=== PATIENT | female | born 1950 | race Hispanic/Latino ===

== ENCOUNTER 2016-08-24 12:25 | Emergency (ER) | payer MEDICARE ==
--- NOTE | 2016-08-24 13:26 | Emergency Department Report ---
Chief Complaint: Abdominal Pain Stated Complaint: CONSTIPATION Time Seen by Provider: 08/24/16 13:20 - HPI History of Present Illness: 66-year-old female presents today stating she hasn't had a bowel movement for 3 weeks. Patient states she has history of constipation and her primary care provider wanted to get a colonoscopy. Patient is requesting a colonoscopy today. Denies chest pain, shortness of breath, abdominal pain, nausea, vomiting. Admits to having difficulty urinating. - ROS Review of Systems: Per HPI - Exam Vital Signs: Vital Signs 08/24/16 12:36 Temperature 99.1 F Pulse Rate 65 Respiratory 18 Rate Blood Pressure 173/87 O2 Sat by Pulse 97 Oximetry Physical Exam: General: 66-year-old female in no acute distress. Well-developed, well- nourished. CV: Regular rate and rhythm. Lungs: Clear to auscultation bilaterally. Abdomen: No tenderness to palpation. No guarding or rebound tenderness. MSE screening note: Focused history and physical exam performed. Due to findings the following was ordered: ED Disposition for MSE Condition: Stable Instructions: Abdominal Pain (ED)
[2016-08-24 13:57] LABS: Eosinophils % (Auto) 4.2 % (0.0-4.3); Hematocrit 39.4 % (30.3-42.9); Hemoglobin 12.7 gm/dl (10.1-14.3); Mean Corpuscular HGB Conc 32 % (30-34); Mean Corpuscular Hemoglobin 29 pg (28-32); Mean Corpuscular Volume 89 fl (79-97); Platelet Count 137 K/mm3 (140-440); Red Blood Count 4.44 M/mm3 (3.65-5.03); Red Cell Distribution Width 15.2 % (13.2-15.2); White Blood Count 6.6 K/mm3 (4.5-11.0)
[2016-08-24 14:12] LABS: Calcium 9.5 mg/dL (8.4-10.2); Chloride 99.9 mmol/L (98-107); Potassium 4.4 mmol/L (3.6-5.0)
[2016-08-25 03:58] VITALS: BP 162/94
[2016-08-25] MEDS ORDERED: CITRATE OF MAGNESIA PO ONE (05:07)
[2016-08-25] MEDS ORDERED: NACL 0.9% 1000 ML 1,000 ML ONE (06:44)
--- NOTE | 2016-08-25 10:44 | XRay Report ---
FINAL REPORT PROCEDURE: X-RAY ABDOMEN TWO VIEWS TECHNIQUE: Two films obtained which are 1 AP upright portable abdomen film and 1 AP supine portable abdomen film HISTORY: Abdominal pain COMPARISON: There no prior plain films of the abdomen to compare FINDINGS: There is a nonspecific bowel gas pattern with no plain film evidence of ileus or obstruction. Moderate amount of stool throughout the colon. Moderate bony degenerative change. Metallic hardware noted in proximal right femur. Hypertrophic bony overgrowth involving proximal right femur. Calcifications in the left pelvis are probably phleboliths although I cannot exclude distal ureteral stones. The upright film and includes a portion of the chest and shoulders. Calcifications in the soft tissues around both shoulder joints right greater than left noted of uncertain significance IMPRESSION: 1. There is a nonspecific bowel gas pattern. 2. Moderate amount of stool throughout the colon. 3. Moderate bony degenerative change. 4. Metallic hardware in proximal right femur.
--- NOTE | 2016-08-25 13:55 | Admit Criteria Form ---
Admission Criteria Documentation: ABDOMINAL PAIN Clinical Indications for Admission to Inpatient Care (Place 'X' for any and all applicable criteria): Admission is indicated for ANY ONE of the following(1)(2)(3)(4)(5): [ ]I. Inpatient admission required rather than observation care (Also use Abdominal Pain: Observation Care, as appropriate) because of ANY ONE of the following: [ ]a) Severe pain requiring acute inpatient management [ ]b) Identification of etiology/finding that requires inpatient care (eg, aortic dissection, free air) [ ]c) Absent bowel sounds with complete ileus(6) [ ]d) Suspected toxic megacolon [ ]e) Severe electrolyte abnormalities requiring inpatient care [ ]f) High fever or infection requiring inpatient admission as indicated by ANY ONE of following(7)(8): [ ] i) Appropriate outpatient or observational care antimicrobial treatment unavailable, not effective, or not feasible [ ] ii) Documented bacteremia [ ] iii) Temperature > 104.9 degrees F (oral) [ ] iv) T >103.1 F (oral) or < 96.8 F(rectal) that does not respond to all emergency treatment measures [ ]g) Signs of intestinal obstruction [B] [ ]h) Hemodynamic instability [ ]i) IV fluid to replace significant ongoing losses (greater than 3 L/m2 per day) (12)(13) [ ]j) Percutaneous or open drainage (eg, abscess, biliary tract ) procedures [ ]k) Parenteral nutrition regimen that must be implemented on inpatient basis [ ]l) Other condition,treatment or monitoring requiring inpatient admission. [ ]II. Peritoneal signs present [ ]III. Surgery needed that cannot be performed on an ambulatory basis. [ ]IV. Evaluation requires patient to not eat or drink for extended period ( eg, more than 24 hours). [ ]V. Contraindications and/or Inappropriate clinical situations for Observational Care in patients with abdominal pain, when ANY ONE of the following is required: [ ]a) Thorough evaluation is required to prevent catastrophic events due to delays in diagnosing (e.g.Mesenteric ischemia) 1,3 [ ]b) Patient with severe pathology or with chronic symptoms unlikely to improve in the ED stay (3) [ ]. General contraindications and/or Inappropriate clinical situations for Observational Care in patients with abdominal pain, when ANY ONE of the following is required: [ ]a) Prediction of prolongation of LOS based on ANY ONE of the following may be considered as a contraindication for observational care 2, 3, 4, 5, 6, 7, 8, 9, 10, 11 [ ]i) Age > 65 yrs. [ ]ii) Patient arriving by ambulance [ ]iii) Patient with high acuity [ ]iv) Patient requiring vital sign monitoring [ ]v) Patient on IV medication [ ]b) Systolic blood pressures 180mmHg 3,12 [ ]c) Patient with altered mental status including delirium and other alteration of consciousness, (3) [ ]d) Patient whose discharge disposition will be to a prison home or rehabilitation home should not be managed in Emergency Department Observation Unit. CMS rule requires 3 days hospital stay before such placement.3,13 [ ]e) Patient with failure to thrive due to broad array of etiologies 3,16,17 [ ]f) Inability to ambulate 3,14 Extended stay beyond goal length of stay may be needed for(2)(3): [ ]a) Persistent abdominal pain with suspected intra-abdominal process [ ]b) Diagnosed condition requiring continued stay (e.g., pancreatitis, complicated diverticulitis) [ ]c) Surgery (e.g., colectomy) The original [employer] includes the [email or web address] content created by [employer] has been revised. The portions of the content which have been revised are identified through the use of italic text or in bold, and [facility] has neither reviewed nor approved the modified material.All other unmodified content is copyright [employer] includes the [email or web address]. Please see references footnoted in the original [employer] includes the [email or web address] edition 2016
[2016-08-25 18:44] LABS: Bilirubin,Urine Negative (Negative); Ketones,Urine Trace mg/dL (Negative)
[2016-08-25 18:46] LABS: Blood,Urine Small (Negative); Leukocyte Esterase,Urine Moderate (Negative); Nitrite,Urine Negative (Negative); Protein,Urine <15 mg/dL mg/dL (Negative); Urobilinogen,Urine < 2.0 mg/dL (<2.0)
[2016-08-25 18:47] LABS: Bacteria,Urine 1+ /HPF (Negative); Mucus,Urine Few /HPF
== END 2016-08-25 15:30 | disposition home or self-care (01) ==
LOC: ED 12:25
DX: R39.198 Other difficulties with micturition (principal); Z53.21 Procedure and treatment not carried out due to patient leaving prior to being seen by health care provider
CPT/HCPCS: 36415; 74020; 80048; 81001; 82150; 83690; 85025; 87086; J7030; 87040

== ENCOUNTER 2017-07-27 16:24 | Inpatient (IN) | payer MEDICARE ==
[2017-07-27] MEDS ORDERED: NACL 0.9% 500 ML 500 ML IV ONE ×4 (17:11→22:15)
[2017-07-27 18:05] LABS: Basophils % (Auto) 0.8 % (0.0-1.8); Eosinophils # (Auto) 0.2 K/mm3 (0.0-0.4); Eosinophils % (Auto) 3.8 % (0.0-4.3); Hematocrit 21.7 % (30.3-42.9); Hemoglobin 6.4 gm/dl (10.1-14.3); Lymphocytes # (Auto) 0.4 K/mm3 (1.2-5.4); Lymphocytes % (Auto) 7.7 % (13.4-35.0); Mean Corpuscular HGB Conc 30 % (30-34); Mean Corpuscular Hemoglobin 24 pg (28-32); Mean Corpuscular Volume 82 fl (79-97); Monocytes # (Auto) 0.5 K/mm3 (0.0-0.8); Monocytes % (Auto) 8.5 % (0.0-7.3); Platelet Count 281 K/mm3 (140-440); Red Blood Count 2.64 M/mm3 (3.65-5.03)
[2017-07-27 18:15] LABS: INR 1.85 (0.87-1.13)
[2017-07-27 18:20] LABS: Albumin 3.1 g/dL (3.9-5); Calcium 8.9 mg/dL (8.4-10.2)
--- NOTE | 2017-07-27 20:19 | XRay Report ---
FINAL REPORT EXAM: XR CHEST 1V AP HISTORY: possible Sepsis TECHNIQUE: AP portable view of the chest PRIORS: None. FINDINGS: Lines, tubes, and devices: N/A Lungs and pleura: Trachea is normal in position. Lungs are clear of infiltrate, pleural effusion, vascular congestion, or pneumothorax. Cardiomediastinal silhouette: Cardiac and mediastinal silhouettes are unremarkable. A small hiatal hernia is present. Other: Bony structures are intact. Numerous soft tissue calcifications around both shoulders are seen which may be related to chronic bursitis. IMPRESSION: No acute cardiopulmonary process seen.
--- NOTE | 2017-07-27 21:11 | Emergency Department Report ---
ED Medical Clearance HPI - General Chief complaint: Medical Clearance Stated complaint: POSS PNEUMONIA Time Seen by Provider: 07/27/17 20:58 Source: patient, EMS Mode of arrival: Stretcher - History of Present Illness Initial comments: 67 yo female pt sent her because of abnormal labs and abnormal chest xray. Complaint: medical clearance request Place: home Alledged Intoxication: No Compliant with Home Medications: Yes Traumatic Symptoms: denies traumatic injury Associated Symptoms: cough, fever/chills, other Treatments Prior to Arrival: none Home medications: Previous Rx's Medication Instructions Recorded Last Taken Type Apixaban [Eliquis] 5 mg PO Q12HR #60 tablet 06/10/17 Unknown Rx Apixaban [Eliquis] 10 mg PO Q12HR #14 tablet 06/10/17 Unknown Rx Dicyclomine [Bentyl] 10 mg PO TID #60 tablet 06/10/17 Unknown Rx Ezetimibe [Zetia] 10 mg PO QDAY #30 tablet 06/10/17 Unknown Rx ISOSORBIDE MONOnitrate [Imdur ER] 30 mg PO DAILY #30 tablet 06/10/17 Unknown Rx Ipratropium/Albuterol Sulfate 1 ampul IH Q6HR #30 ampul.neb 06/10/17 Unknown Rx [DUONEB *Not for PRN Use*] Levothyroxine [Synthroid] 75 mcg PO QAM #30 tablet 06/10/17 Unknown Rx Oxybutynin [Ditropan] 5 mg PO QDAY #30 tablet 06/10/17 Unknown Rx Pantoprazole [Protonix TAB] 40 mg PO DAILY #30 tablet 06/10/17 Unknown Rx Pravastatin [Pravachol] 40 mg PO QHS #30 tablet 06/10/17 Unknown Rx Propranolol LA [Inderal LA] 80 mg PO QDAY #30 capsule 06/10/17 Unknown Rx Sertraline [Zoloft] 100 mg PO DAILY #30 tablet 06/10/17 Unknown Rx amLODIPine [Norvasc] 5 mg PO DAILY #30 tablet 06/10/17 Unknown Rx hydrALAZINE [Apresoline TAB] 50 mg PO TID #90 tablet 06/10/17 Unknown Rx Allergies/Adverse reactions: Allergies Allergy/AdvReac Type Severity Reaction Status Date / Time No Known Allergies Allergy Unverified 06/06/17 13:31 ED Review of Systems ROS: Stated complaint: POSS PNEUMONIA Other details as noted in HPI Constitutional: denies: chills, fever Eyes: denies: eye pain, eye discharge, vision change ENT: denies: ear pain, throat pain Respiratory: cough (for 2 weeks), wheezing. denies: shortness of breath, SOB with exertion, SOB at rest Cardiovascular: chest pain (secondary to cough). denies: palpitations Endocrine: no symptoms reported Gastrointestinal: denies: abdominal pain, nausea, diarrhea Genitourinary: denies: urgency, dysuria, discharge Musculoskeletal: other (right foot ulcer). denies: back pain, joint swelling, arthralgia Skin: denies: rash, lesions Neurological: denies: headache, weakness, paresthesias Psychiatric: denies: anxiety, depression Hematological/Lymphatic: denies: easy bleeding, easy bruising ED Past Medical Hx - Past Medical History Previous Medical History?: Yes Hx Hypertension: Yes Hx Heart Attack/AMI: Yes Hx Pulmonary Embolism: Yes Hx GERD: Yes Hx Renal Disease: Yes (renal failure) Hx Arthritis: Yes Hx COPD: Yes Additional medical history: wound infection,cellulitis,buttocks decubitus, encephalopathy,tachycardia. OSTEOPOROSIS. THYROID-hypothyroidism. ANGINA, generalized weakness, decubitus right lower extremity ulcer staph - Surgical History Past Surgical History?: Yes Additional Surgical History: bilat ankle, right knee surgery, hysterectomy, tonsillectomy - Social History Smoking Status: Never Smoker Substance Use Type: None - Medications Home Medications: Home Medications Medication Instructions Recorded Confirmed Last Taken Type Apixaban [Eliquis] 5 mg PO Q12HR #60 tablet 06/10/17 Unknown Rx Apixaban [Eliquis] 10 mg PO Q12HR #14 tablet 06/10/17 Unknown Rx Dicyclomine [Bentyl] 10 mg PO TID #60 tablet 06/10/17 Unknown Rx Ezetimibe [Zetia] 10 mg PO QDAY #30 tablet 06/10/17 Unknown Rx ISOSORBIDE MONOnitrate [Imdur ER] 30 mg PO DAILY #30 tablet 06/10/17 Unknown Rx Ipratropium/Albuterol Sulfate 1 ampul IH Q6HR #30 ampul.neb 06/10/17 Unknown Rx [DUONEB *Not for PRN Use*] Levothyroxine [Synthroid] 75 mcg PO QAM #30 tablet 06/10/17 Unknown Rx Oxybutynin [Ditropan] 5 mg PO QDAY #30 tablet 06/10/17 Unknown Rx Pantoprazole [Protonix TAB] 40 mg PO DAILY #30 tablet 06/10/17 Unknown Rx Pravastatin [Pravachol] 40 mg PO QHS #30 tablet 06/10/17 Unknown Rx Propranolol LA [Inderal LA] 80 mg PO QDAY #30 capsule 06/10/17 Unknown Rx Sertraline [Zoloft] 100 mg PO DAILY #30 tablet 06/10/17 Unknown Rx amLODIPine [Norvasc] 5 mg PO DAILY #30 tablet 06/10/17 Unknown Rx hydrALAZINE [Apresoline TAB] 50 mg PO TID #90 tablet 06/10/17 Unknown Rx ED Physical Exam - General Limitations: No Limitations General appearance: alert, in no apparent distress - Head Head exam: Present: atraumatic, normocephalic - Eye Eye exam: Present: normal appearance, EOMI - ENT ENT exam: Present: mucous membranes dry, other (multiple missing teeth) - Neck Neck exam: Present: normal inspection, full ROM - Respiratory Respiratory exam: Present: normal lung sounds bilaterally. Absent: respiratory distress, wheezes, rales - Cardiovascular Cardiovascular Exam: Present: regular rate, normal rhythm. Absent: systolic murmur, diastolic murmur, rubs, gallop - GI/Abdominal GI/Abdominal exam: Present: soft, normal bowel sounds. Absent: distended, tenderness, guarding - Rectal Rectal exam: Present: heme (+) stool, hemorrhoids (multiple around entire anus) - Extremities Exam Extremities exam: Present: tenderness (over ulcer on right foot), other ( decubitus ulcer on right foot) - Back Exam Back exam: Present: normal inspection, full ROM - Neurological Exam Neurological exam: Present: alert, oriented X3, CN II-XII intact - Psychiatric Psychiatric exam: Present: normal affect, normal mood - Skin Skin exam: Present: warm, dry, intact, normal color. Absent: rash ED Course Vital Signs 07/27/17 17:04 Temperature 99.1 F Pulse Rate 103 H Respiratory 18 Rate Blood Pressure 86/50 O2 Sat by Pulse 96 Oximetry ED Medical Decision Making - Lab Data Result diagrams: 07/27/17 17:47 07/27/17 17:47 - EKG Data -: EKG Interpreted by Me - Radiology Data Radiology results: report reviewed (cxr:no acute , ), image reviewed (cxr: left lower lobe infiltrate) ED Disposition Clinical Impression: MRSA (methicillin resistant Staphylococcus aureus) infection, Hyperkalemia GI bleed Qualifiers: GI bleed type/associated pathology: unspecified gastrointestinal hemorrhage type Qualified Code(s): K92.2 - Gastrointestinal hemorrhage, unspecified Pneumonia Qualifiers: Pneumonia type: due to unspecified organism Laterality: unspecified laterality Lung location: unspecified part of lung Qualified Code(s): J18.9 - Pneumonia, unspecified organism Condition: Stable Instructions: Bacterial Pneumonia (ED) Time of Disposition: 21:40 ( )
[2017-07-27] MEDS ORDERED: PROTONIX IV ONE (21:53)
[2017-07-27] MEDS ORDERED: NACL 0.9% 500 ML 500 ML ONE ×2 (21:55→22:57)
[2017-07-27 21:58] LABS: Calcium 8.5 mg/dL (8.4-10.2)
[2017-07-27] MEDS ORDERED: PROTONIX 80 MG in NACL 0.9% 100 ML IV SCH (22:00)
[2017-07-27] MEDS ORDERED: TYLENOL PO PRN (22:10)
[2017-07-27] MEDS ORDERED: DULCOLAX PR PRN (22:10)
[2017-07-27] MEDS ORDERED: ZOFRAN IV PRN (22:10)
[2017-07-27] MEDS ORDERED: MILK OF MAGNESIA PO PRN (22:10)
--- NOTE | 2017-07-27 22:14 | History and Physical Report ---
History of Present Illness Date of examination: 07/27/17 History of present illness: 67-year-old woman history of coronary artery disease, COPD, hypertension, hypothyroidism, depression was diagnosed with pulmonary emboli on last admission and started On anticoagulation was sent to the emergency room today secondary to low hemoglobin. Patient denies any symptoms, black stool Review Of Systems: Constitutional: no weight loss Ears, eyes, nose, mouth and throat: no nasal congestion, no nasal discharge, no sinus pressure, blurry vision, diplopia Neck: No neck pain or rigidity. Cardiovascular: No chest pain, palpitations Respiratory: No shortness of breath, cough Gastrointestinal: No abdominal pain, hematochezia Genitourinary : no dysuria, frequency , hematuria Musculoskeletal: no muscle ache Integumentary: no rash, no pruritis Neurological: no parathesias, focal weakness Endocrine: no cold or heat intolerance, no polyuria or polydipsia Hematologic/Lymphatic: no easy bruising, no easy bleeding, no gland swelling Allergic/Immunologic: no urticaria, no angioedema. PAST MEDICAL HISTORY:coronary artery disease, COPD, hypertension, hypothyroidism , depression, pulmonary emboli PAST SURGICAL HISTORY: Hysterectomy, knee replacement, foot surgery FAMILY HISTORY: Hypertension SOCIAL HISTORY: Denies Alcohol, tobacco, drugs Medications and Allergies Allergies Allergy/AdvReac Type Severity Reaction Status Date / Time No Known Allergies Allergy Unverified 06/06/17 13:31 Home Medications Medication Instructions Recorded Confirmed Last Taken Type Apixaban [Eliquis] 5 mg PO Q12HR #60 tablet 06/10/17 07/27/17 07/27/17 Rx Apixaban [Eliquis] 10 mg PO Q12HR #14 tablet 06/10/17 07/27/17 07/27/17 Rx Dicyclomine [Bentyl] 10 mg PO TID #60 tablet 06/10/17 07/27/17 07/27/17 Rx Ezetimibe [Zetia] 10 mg PO QDAY #30 tablet 06/10/17 07/27/17 07/27/17 Rx ISOSORBIDE MONOnitrate [Imdur ER] 30 mg PO DAILY #30 tablet 06/10/17 07/27/17 Rx Ipratropium/Albuterol Sulfate 1 ampul IH Q6HR #30 ampul.neb 06/10/17 07/27/17 Rx [DUONEB *Not for PRN Use*] Levothyroxine [Synthroid] 75 mcg PO QAM #30 tablet 06/10/17 07/27/17 07/27/17 Rx Oxybutynin [Ditropan] 5 mg PO QDAY #30 tablet 06/10/17 07/27/17 07/27/17 Rx Pantoprazole [Protonix TAB] 40 mg PO DAILY #30 tablet 06/10/17 07/27/17 Rx Pravastatin [Pravachol] 40 mg PO QHS #30 tablet 06/10/17 07/27/17 07/27/17 Rx Propranolol LA [Inderal LA] 80 mg PO QDAY #30 capsule 06/10/17 07/27/17 Rx Sertraline [Zoloft] 100 mg PO DAILY #30 tablet 06/10/17 07/27/17 07/27/17 Rx amLODIPine [Norvasc] 5 mg PO DAILY #30 tablet 06/10/17 07/27/17 07/27/17 Rx hydrALAZINE [Apresoline TAB] 50 mg PO TID #90 tablet 06/10/17 07/27/17 07/27/17 Rx Active Meds: Active Medications Acetaminophen (Tylenol) 650 mg PO Q4H PRN PRN Reason: Pain MILD(1-3)/Fever >100.5/REY Albuterol/Ipratropium (Duoneb *Not For Prn Use*) 1 ampul IH Q6HR JAM Amlodipine Besylate (Norvasc) 5 mg PO DAILY JAM Bisacodyl (Dulcolax) 10 mg ND QDAY PRN PRN Reason: Constipation unrelieved by MOM Ezetimibe (Zetia) 10 mg PO QDAY JAM Hydralazine HCl (Apresoline) 50 mg PO TID JAM Pantoprazole Sodium 80 mg/ (Sodium Chloride) 100 mls @ 10 mls/hr IV Q10H JAM PRN Reason: 8 MG/HR Sodium Chloride (Nacl 0.9% 500 Ml) 500 mls @ 999 mls/hr IV ONCE ONE Stop: 07/27/17 22:24 Sodium Chloride (Nacl 0.9% 500 Ml) 500 mls @ 0 mls/hr IV ONCE ONE PRN Reason: As Directed Stop: 07/27/17 22:11 Levothyroxine Sodium (Synthroid) 75 mcg PO QAM JAM Magnesium Hydroxide (Milk Of Magnesia) 30 ml PO Q4H PRN PRN Reason: Constipation Ondansetron HCl (Zofran) 4 mg IV Q8H PRN PRN Reason: N/V unrelieved by Reglan Oxybutynin Chloride (Ditropan) 5 mg PO QDAY JAM Pantoprazole Sodium (Protonix) 40 mg IV ONCE ONE Stop: 07/27/17 21:54 Pantoprazole Sodium (Protonix) 40 mg PO DAILY JAM Propranolol HCl (Inderal La) 80 mg PO QDAY JAM Sertraline HCl (Zoloft) 100 mg PO DAILY JAM Exam - Physical Exam Narrative exam: Gen. appearance: Patient lying in bed in no acute distress HEENT: Normocephalic/atraumatic, pupils equal round reactive to light, extra occular movement intact, no scleral icterus, no JVD or thyromegaly or nodule, neck is supple, mucous membrane moist, no erythema or exudate Heart: S1-S2, regular rate and rhythm Lungs: Clear to auscultation bilateral breathing comfortable Abdomen: Positive bowel sounds, nontender, nondistended, no organomegaly Extremities: No edema, cyanosis, clubbing Neuro:: Oriented 3 , cranial nerves II-12 intact, speech, motor intact Skin: No rash, nodules, warm dry Rectal: heme positive stool - Constitutional Vitals: Temp Pulse Resp BP Pulse Ox 99.1 F 103 H 18 86/50 96 07/27/17 17:04 07/27/17 17:04 07/27/17 17:04 07/27/17 17:04 07/27/17 17:04 Results - Labs CBC & Chem 7: 07/27/17 17:47 07/27/17 21:19 Labs: Abnormal lab results 07/27/17 07/27/17 07/27/17 Range/Units 17:47 17:47 17:47 RBC 2.64 L (3.65-5.03) M/mm3 Hgb 6.4 L (10.1-14.3) gm/dl Hct 21.7 L (30.3-42.9) % MCH 24 L (28-32) pg RDW 19.0 H (13.2-15.2) % Lymph % (Auto) 7.7 L (13.4-35.0) % [place] % (Auto) 8.5 H (0.0-7.3) % Lymph # 0.4 L (1.2-5.4) K/mm3 Seg Neutrophils % 79.2 H (40.0-70.0) % PT 22.4 H (12.2-14.9) Sec. INR 1.85 H (0.87-1.13) Potassium 5.4 H (3.6-5.0) mmol/L BUN 49 H (7-17) mg/dL Creatinine 1.8 H (0.7-1.2) mg/dL Glucose 112 H (65-100) mg/dL ALT 5 L (7-56) units/L NT-Pro-B Natriuret Pep (0-900) pg/mL Total Protein 5.4 L (6.3-8.2) g/dL Albumin 3.1 L (3.9-5) g/dL 07/27/17 07/27/17 Range/Units 21:19 21:19 RBC (3.65-5.03) M/mm3 Hgb (10.1-14.3) gm/dl Hct (30.3-42.9) % MCH (28-32) pg RDW (13.2-15.2) % Lymph % (Auto) (13.4-35.0) % [place] % (Auto) (0.0-7.3) % Lymph # (1.2-5.4) K/mm3 Seg Neutrophils % (40.0-70.0) % PT (12.2-14.9) Sec. INR (0.87-1.13) Potassium 5.1 H (3.6-5.0) mmol/L BUN 49 H (7-17) mg/dL Creatinine 1.6 H (0.7-1.2) mg/dL Glucose 114 H (65-100) mg/dL ALT (7-56) units/L NT-Pro-B Natriuret Pep 3445 H (0-900) pg/mL Total Protein (6.3-8.2) g/dL Albumin (3.9-5) g/dL - Imaging and Cardiology EKG: image reviewed Chest x-ray: image reviewed Assessment and Plan Assessment GI bleed Anemia Acute renal insufficiency Pulmonary emboli Hypertension COPD Coronary artery disease Depression Hypothyroidism Plan Admit to medicine Hold anticoagulation, and transfuse packed red blood cells Consult GI, pulmonary, start iv fluid Continue appropriate outpatient medications DVT prophylaxis
[2017-07-27 22:39] LABS: Free T4 (Free Thyroxine) 1.41 ng/dL (0.76-1.46)
[2017-07-28] MEDS ORDERED: NACL 0.9% 500 ML 500 ML ONE (01:12)
[2017-07-28] MEDS: DUONEB *Not for PRN Use IH SCH ×4 (02:54→21:22)
[2017-07-28] MEDS: SYNTHROID PO SCH (05:53)
[2017-07-28] MEDS: APRESOLINE PO SCH ×3 (07:41→21:10)
--- NOTE | 2017-07-28 08:00 | Progress Note ---
Assessment and Plan Assessment and plan: 67-year-old woman who was sent from a custodial, she was recently diagnosed with pulmonary embolism and is on anticoagulation. She was sent for low blood pressure. Patient denies melena or blood in her stool. But also admits that she does not really look at her stool. Acute blood loss anemia Has been transfused 1 unit PRBC, recheck CBC in Highly suspected GI bleed, GI has been consulted for endoscopy History of Pulmonary embolism Case was discussed with neck band maker, apparently the patient had a PE about 4 months ago. The last time the patient was actually seen by pulmonology and he recommended no further anticoagulation. Dopplers of lower x-rays were recommended and is negative for DVT. Therefore no further need for anticoagulation, etc. since the risk does not outweigh the benefits Acute kidney injury/ATN -hopefully improve with transfusion, if not will obtain nephrology consult and renal ultrasound Hypothyroidism -Thyroid function tests within normal limits, continue Synthroid at current dose Hyperkalemia -Improving, medically managed History Interval history: Review of systems Constitutional: No fevers, no malaise, no joint pains CVS: No chest pain, no orthopnea, no dyspnea on exertion, no pedal edema GI: No abdominal pain, no diarrhea, no vomiting, no constipation Respiratory: No shortness of breath, no wheezing, no coughingReview of systems Hospitalist Physical - Physical exam Narrative exam: General.: Appears well, no distress, nontoxic HEENT: Moist mucous membranes, extraocular muscles intact, no lymphadenopathy Neck: supple Cardiac: S1-S2 heard Lungs: clear to auscultation bilaterally Abdomen: soft , nontender, nondistended, bowel sounds positive Extremities: no edema clubbing or cyanosis Skin: no rash or lesions Neurologic: no gross focal deficits Psych: appropriate behavior, appropriate mood, corporative, judgment intact - Constitutional Vitals: Temp Pulse Resp BP Pulse Ox 99.0 F 79 16 86/58 95 07/28/17 07:44 07/28/17 07:44 07/28/17 07:44 07/28/17 07:44 07/28/17 03:25 Results - Labs CBC & Chem 7: 07/28/17 11:11 07/28/17 11:11 Labs: Laboratory Last Values WBC 5.6 K/mm3 (4.5-11.0) 07/27/17 17:47 RBC 2.64 M/mm3 (3.65-5.03) L 07/27/17 17:47 Hgb 6.4 gm/dl (10.1-14.3) L 07/27/17 17:47 Hct 21.7 % (30.3-42.9) L 07/27/17 17:47 MCV 82 fl (79-97) 07/27/17 17:47 MCH 24 pg (28-32) L 07/27/17 17:47 MCHC 30 % (30-34) 07/27/17 17:47 RDW 19.0 % (13.2-15.2) H 07/27/17 17:47 Plt Count 281 K/mm3 (140-440) 07/27/17 17:47 Lymph % (Auto) 7.7 % (13.4-35.0) L 07/27/17 17:47 Wells % (Auto) 8.5 % (0.0-7.3) H 07/27/17 17:47 Eos % (Auto) 3.8 % (0.0-4.3) 07/27/17 17:47 Baso % (Auto) 0.8 % (0.0-1.8) 07/27/17 17:47 Lymph # 0.4 K/mm3 (1.2-5.4) L 07/27/17 17:47 Wells # 0.5 K/mm3 (0.0-0.8) 07/27/17 17:47 Eos # 0.2 K/mm3 (0.0-0.4) 07/27/17 17:47 Baso # 0.0 K/mm3 (0.0-0.1) 07/27/17 17:47 Seg Neutrophils % 79.2 % (40.0-70.0) H 07/27/17 17:47 Seg Neutrophils # 4.5 K/mm3 (1.8-7.7) 07/27/17 17:47 PT 22.4 Sec. (12.2-14.9) H 07/27/17 17:47 INR 1.85 (0.87-1.13) H 07/27/17 17:47 VBG pH 7.351 (7.320-7.420) 07/27/17 17:47 Sodium 141 mmol/L (137-145) 07/27/17 21:19 Potassium 5.1 mmol/L (3.6-5.0) H 07/27/17 21:19 Chloride 105.1 mmol/L (98-107) 07/27/17 21:19 Carbon Dioxide 24 mmol/L (22-30) 07/27/17 21:19 Anion Gap 17 mmol/L 07/27/17 21:19 BUN 49 mg/dL (7-17) H 07/27/17 21:19 Creatinine 1.6 mg/dL (0.7-1.2) H 07/27/17 21:19 Estimated GFR 32 ml/min 07/27/17 21:19 BUN/Creatinine Ratio 31 % 07/27/17 21:19 Glucose 114 mg/dL (65-100) H 07/27/17 21:19 POC Glucose 110 (70-105) H 07/27/17 23:32 Lactic Acid 1.40 mmol/L (0.7-2.0) 07/27/17 17:47 Calcium 8.5 mg/dL (8.4-10.2) 07/27/17 21:19 Total Bilirubin 0.20 mg/dL (0.1-1.2) 07/27/17 17:47 AST 18 units/L (5-40) 07/27/17 17:47 ALT 5 units/L (7-56) L 07/27/17 17:47 Alkaline Phosphatase 96 units/L (35-129) 07/27/17 17:47 NT-Pro-B Natriuret Pep 3445 pg/mL (0-900) H 07/27/17 21:19 Total Protein 5.4 g/dL (6.3-8.2) L 07/27/17 17:47 Albumin 3.1 g/dL (3.9-5) L 07/27/17 17:47 Albumin/Globulin Ratio 1.3 % 07/27/17 17:47 TSH 1.290 mlU/mL (0.270-4.200) 07/27/17 17:47 Free T4 1.41 ng/dL (0.76-1.46) 07/27/17 17:47 Blood Type O POSITIVE 07/27/17 21:24 Antibody Screen Negative 07/27/17 21:24 Crossmatch See Detail 07/27/17 21:24
[2017-07-28] MEDS: DITROPAN PO SCH (09:33)
[2017-07-28] MEDS: ZOLOFT PO SCH (09:34)
[2017-07-28] MEDS ORDERED: PROTONIX PO SCH (10:00)
[2017-07-28] MEDS ORDERED: NORVASC PO SCH (10:00)
[2017-07-28] MEDS ORDERED: INDERAL LA PO SCH (10:00)
--- NOTE | 2017-07-28 10:26 | Gastroenterology Consultation ---
<LEONCIO OSBORN - Last Filed: 07/28/17 10:30> History of Present Illness - Reason for Consult Consult date: 07/28/17 GI bleed, anemia Requesting physician: KELLY ARREDONDO - History of Present Illness Patient is a 67 y/o female [place] [facility] resident with PMH of CAD , COPD, HTN, hypothyroidism, depression, and PE (on Eliquis) who presented to ED for abnormal labs after routine blood work. She was found to have anemia on admission with HGB 6.4. This morning pt was resting in bed w/o acute distress. No active signs of bleeding such as hematemesis, melena, or hematochezia. She admits to having PUD approximately 7-8 years ago revealed from EGD. Last colonoscopy was approximately 14 years ago with negative results. No NSAID use. No Fhx of GI cancers. Admits to dysphagia with solids and liquids that has been present for a long period of time (pt is unsure of exact onset). Denies wt loss , CP, dizziness, abd pain, N/V, heartburn, odynophagia, diarrhea, or constipation. Rectal exam revealed brown stool. Past History Past Medical History: CAD, COPD, hypertension, hypothyroidism, other (depression , PE) Past Surgical History: hysterectomy, Other (knee replacement, foot surgery) Social history: other ([place] [facility] resident) Family history: hypertension Medications and Allergies Allergies Allergy/AdvReac Type Severity Reaction Status Date / Time No Known Allergies Allergy Unverified 06/06/17 13:31 Home Medications Medication Instructions Recorded Confirmed Last Taken Type Apixaban [Eliquis] 5 mg PO Q12HR #60 tablet 06/10/17 07/27/17 07/27/17 Rx Apixaban [Eliquis] 10 mg PO Q12HR #14 tablet 06/10/17 07/27/17 07/27/17 Rx Dicyclomine [Bentyl] 10 mg PO TID #60 tablet 06/10/17 07/27/17 07/27/17 Rx Ezetimibe [Zetia] 10 mg PO QDAY #30 tablet 06/10/17 07/27/17 07/27/17 Rx ISOSORBIDE MONOnitrate [Imdur ER] 30 mg PO DAILY #30 tablet 06/10/17 07/27/17 Rx Ipratropium/Albuterol Sulfate 1 ampul IH Q6HR #30 ampul.neb 06/10/17 07/27/17 Rx [DUONEB *Not for PRN Use*] Levothyroxine [Synthroid] 75 mcg PO QAM #30 tablet 06/10/17 07/27/17 07/27/17 Rx Oxybutynin [Ditropan] 5 mg PO QDAY #30 tablet 06/10/17 07/27/17 07/27/17 Rx Pantoprazole [Protonix TAB] 40 mg PO DAILY #30 tablet 06/10/17 07/27/17 Rx Pravastatin [Pravachol] 40 mg PO QHS #30 tablet 06/10/17 07/27/17 07/27/17 Rx Propranolol LA [Inderal LA] 80 mg PO QDAY #30 capsule 06/10/17 07/27/17 Rx Sertraline [Zoloft] 100 mg PO DAILY #30 tablet 06/10/17 07/27/17 07/27/17 Rx amLODIPine [Norvasc] 5 mg PO DAILY #30 tablet 06/10/17 07/27/17 07/27/17 Rx hydrALAZINE [Apresoline TAB] 50 mg PO TID #90 tablet 06/10/17 07/27/17 07/27/17 Rx Active Meds: Active Medications Acetaminophen (Tylenol) 650 mg PO Q4H PRN PRN Reason: Pain MILD(1-3)/Fever >100.5/REY Albuterol/Ipratropium (Duoneb *Not For Prn Use*) 1 ampul IH Q6HRT [facility] Last Admin: 07/28/17 07:54 Dose: 1 ampul Bisacodyl (Dulcolax) 10 mg IA QDAY PRN PRN Reason: Constipation unrelieved by MOM Ezetimibe (Zetia) 10 mg PO QDAY@1200 [facility] Hydralazine HCl (Apresoline) 50 mg PO TID [facility] Last Admin: 07/28/17 07:41 Dose: Not Given Pantoprazole Sodium 80 mg/ (Sodium Chloride) 100 mls @ 10 mls/hr IV DIRECT [facility] PRN Reason: 8 MG/HR Last Admin: 07/27/17 23:08 Dose: 8 mg/hr, 10 mls/hr Levothyroxine Sodium (Synthroid) 75 mcg PO QAM@0600 [facility] Last Admin: 07/28/17 05:53 Dose: 75 mcg Magnesium Hydroxide (Milk Of Magnesia) 30 ml PO Q4H PRN PRN Reason: Constipation Ondansetron HCl (Zofran) 4 mg IV Q8H PRN PRN Reason: N/V unrelieved by Reglan Oxybutynin Chloride (Ditropan) 5 mg PO QDAY [facility] Last Admin: 07/28/17 09:33 Dose: 5 mg Sertraline HCl (Zoloft) 100 mg PO DAILY [facility] Last Admin: 07/28/17 09:34 Dose: 100 mg Review of Systems - Review of Systems All systems: negative Gastrointestinal: other (dysphagia), no hematemesis, no coffee ground emesis, no melena, no hematochezia Exam - Constitutional Vital Signs: Temp Pulse Resp BP Pulse Ox 99.0 F 79 16 86/58 95 07/28/17 07:44 07/28/17 07:44 07/28/17 07:44 07/28/17 07:44 07/28/17 03:25 General appearance: no acute distress - EENT Eyes: PERRL, EOM intact ENT: hearing intact - Respiratory Respiratory: bilateral: diminished - Cardiovascular Rhythm: regular Heart Sounds: Present: S1 & S2 - Gastrointestinal General gastrointestinal: Present: soft, non-tender, non-distended, normal bowel sounds Rectal Exam: stool brown - Neurologic Neurological: alert and oriented x3 - Labs CBC & Chem 7: 07/27/17 17:47 07/27/17 21:19 Lab Results: Laboratory Results - last 24 hr 07/27/17 07/27/17 07/27/17 17:47 17:47 17:47 WBC 5.6 RBC 2.64 L Hgb 6.4 L Hct 21.7 L MCV 82 MCH 24 L MCHC 30 RDW 19.0 H Plt Count 281 Lymph % (Auto) 7.7 L [place] % (Auto) 8.5 H Eos % (Auto) 3.8 Baso % (Auto) 0.8 Lymph # 0.4 L [place] # 0.5 Eos # 0.2 Baso # 0.0 Seg Neutrophils % 79.2 H Seg Neutrophils # 4.5 PT 22.4 H INR 1.85 H VBG pH Sodium 144 Potassium 5.4 H Chloride 104.9 Carbon Dioxide 24 Anion Gap 21 BUN 49 H Creatinine 1.8 H Estimated GFR 28 BUN/Creatinine Ratio 27 Glucose 112 H POC Glucose Lactic Acid Calcium 8.9 Total Bilirubin 0.20 AST 18 ALT 5 L Alkaline Phosphatase 96 NT-Pro-B Natriuret Pep Total Protein 5.4 L Albumin 3.1 L Albumin/Globulin Ratio 1.3 TSH Free T4 Blood Type Antibody Screen Crossmatch 07/27/17 07/27/17 07/27/17 17:47 17:47 17:47 WBC RBC Hgb Hct MCV MCH MCHC RDW Plt Count Lymph % (Auto) [place] % (Auto) Eos % (Auto) Baso % (Auto) Lymph # [place] # Eos # Baso # Seg Neutrophils % Seg Neutrophils # PT INR VBG pH 7.351 Sodium Potassium Chloride Carbon Dioxide Anion Gap BUN Creatinine Estimated GFR BUN/Creatinine Ratio Glucose POC Glucose Lactic Acid 1.40 Calcium Total Bilirubin AST ALT Alkaline Phosphatase NT-Pro-B Natriuret Pep Total Protein Albumin Albumin/Globulin Ratio TSH 1.290 Free T4 1.41 Blood Type Antibody Screen Crossmatch 07/27/17 07/27/17 07/27/17 21:19 21:19 21:24 WBC RBC Hgb Hct MCV MCH MCHC RDW Plt Count Lymph % (Auto) [place] % (Auto) Eos % (Auto) Baso % (Auto) Lymph # [place] # Eos # Baso # Seg Neutrophils % Seg Neutrophils # PT INR VBG pH Sodium 141 Potassium 5.1 H Chloride 105.1 Carbon Dioxide 24 Anion Gap 17 BUN 49 H Creatinine 1.6 H Estimated GFR 32 BUN/Creatinine Ratio 31 Glucose 114 H POC Glucose Lactic Acid Calcium 8.5 Total Bilirubin AST ALT Alkaline Phosphatase NT-Pro-B Natriuret Pep 3445 H Total Protein Albumin Albumin/Globulin Ratio TSH Free T4 Blood Type O POSITIVE Antibody Screen Negative Crossmatch See Detail 07/27/17 23:32 WBC RBC Hgb Hct MCV MCH MCHC RDW Plt Count Lymph % (Auto) [place] % (Auto) Eos % (Auto) Baso % (Auto) Lymph # [place] # Eos # Baso # Seg Neutrophils % Seg Neutrophils # PT INR VBG pH Sodium Potassium Chloride Carbon Dioxide Anion Gap BUN Creatinine Estimated GFR BUN/Creatinine Ratio Glucose POC Glucose 110 H Lactic Acid Calcium Total Bilirubin AST ALT Alkaline Phosphatase NT-Pro-B Natriuret Pep Total Protein Albumin Albumin/Globulin Ratio TSH Free T4 Blood Type Antibody Screen Crossmatch Assessment and Plan 1.anemia 2. dysphagia -HGB 6.4- 2 units PRBCs transfused- repeat H/H pending -continue to monitor H/H and transfuse as needed -hold blood thinning medications (on Eliquis at [facility]) -no active signs of bleeding (rectal exam revealed brown stool) -will order stool for occult blood -continue PPI -etiology unclear -will schedule for EGD/colonoscopy in am -clear liquids today then NPO after MN -continue supportive care -will follow <DHAVAL FORDE - Last Filed: 07/29/17 08:36> Medications and Allergies Active Meds: Active Medications Acetaminophen (Tylenol) 650 mg PO Q4H PRN PRN Reason: Pain MILD(1-3)/Fever >100.5/REY Albuterol/Ipratropium (Duoneb *Not For Prn Use*) 1 ampul IH Q6HRT [facility] Last Admin: 07/29/17 02:06 Dose: Not Given Bisacodyl (Dulcolax) 10 mg IA QDAY PRN PRN Reason: Constipation unrelieved by MOM Ezetimibe (Zetia) 10 mg PO QDAY@1200 [facility] Last Admin: 07/28/17 11:53 Dose: 10 mg Hydralazine HCl (Apresoline) 50 mg PO TID [facility] Last Admin: 07/28/17 21:10 Dose: 50 mg Levothyroxine Sodium (Synthroid) 75 mcg PO QAM@0600 [facility] Last Admin: 07/29/17 05:11 Dose: Not Given Magnesium Hydroxide (Milk Of Magnesia) 30 ml PO Q4H PRN PRN Reason: Constipation Ondansetron HCl (Zofran) 4 mg IV Q8H PRN PRN Reason: N/V unrelieved by Reglan Oxybutynin Chloride (Ditropan) 5 mg PO QDAY [facility] Last Admin: 07/28/17 09:33 Dose: 5 mg Pantoprazole Sodium (Protonix) 40 mg IV QDAY [facility] Last Admin: 07/28/17 23:04 Dose: 40 mg Sertraline HCl (Zoloft) 100 mg PO DAILY [facility] Last Admin: 07/28/17 09:34 Dose: 100 mg Exam - Constitutional Vital Signs: Temp Pulse Resp BP Pulse Ox 98.1 F 83 21 130/86 95 07/29/17 07:54 07/29/17 07:54 07/29/17 07:54 07/29/17 07:54 07/29/17 07:54 - Labs CBC & Chem 7: 07/29/17 04:40 07/28/17 11:11 Lab Results: Laboratory Results - last 24 hr 07/28/17 07/28/17 07/28/17 10:27 11:11 11:11 WBC 6.1 RBC 3.50 L Hgb 9.2 L Hct 29.8 L D MCV 85 MCH 26 L MCHC 31 RDW 17.9 H Plt Count 214 Lymph % (Auto) 9.0 L [place] % (Auto) 6.0 Eos % (Auto) 3.8 Baso % (Auto) 0.8 Lymph # 0.5 L [place] # 0.4 Eos # 0.2 Baso # 0.0 Seg Neutrophils % 80.4 H Seg Neutrophils # 4.9 PT INR Sodium 144 Potassium 4.9 Chloride 107.1 H Carbon Dioxide 21 L Anion Gap 21 BUN 47 H Creatinine 1.5 H Estimated GFR 34 BUN/Creatinine Ratio 31 Glucose 111 H Calcium 8.7 Urine Color Hayley Urine Turbidity Turbid Urine pH 6.0 Ur Specific [place] 1.016 Urine Protein 30 mg/dl Urine Glucose (UA) Neg Urine Ketones Neg Urine Blood Mod Urine Nitrite Neg Urine Bilirubin Neg Urine Urobilinogen < 2.0 Ur Leukocyte Esterase Lg Urine WBC (Auto) > 182.0 H Urine RBC (Auto) 39.0 U Epithel Cells (Auto) 5.0 Urine Bacteria (Auto) 4+ Ur Transition Epith Cell 4 Urine Mucus Few 07/29/17 07/29/17 04:40 04:40 WBC 4.9 RBC 3.48 L Hgb 9.2 L Hct 29.4 L MCV 85 MCH 27 L MCHC 31 RDW 18.4 H Plt Count 223 Lymph % (Auto) 16.3 [place] % (Auto) 7.0 Eos % (Auto) 3.6 Baso % (Auto) 1.2 Lymph # 0.8 L [place] # 0.3 Eos # 0.2 Baso # 0.1 Seg Neutrophils % 71.9 H Seg Neutrophils # 3.5 PT 17.4 H INR 1.35 H Sodium Potassium Chloride Carbon Dioxide Anion Gap BUN Creatinine Estimated GFR BUN/Creatinine Ratio Glucose Calcium Urine Color Urine Turbidity Urine pH Ur Specific [place] Urine Protein Urine Glucose (UA) Urine Ketones Urine Blood Urine Nitrite Urine Bilirubin Urine Urobilinogen Ur Leukocyte Esterase Urine WBC (Auto) Urine RBC (Auto) U Epithel Cells (Auto) Urine Bacteria (Auto) Ur Transition Epith Cell Urine Mucus Assessment and Plan Pt seen and examined on 07/28. Plan as noted.
[2017-07-28 11:28] LABS: Bacteria,Urine 4+ /HPF (Negative); Bilirubin,Urine NEG (Negative); Blood,Urine MOD (Negative); Color,Urine Amber (Yellow); Mucus,Urine FEW /HPF; Nitrite,Urine NEG (Negative); Urobilinogen,Urine < 2.0 mg/dL (<2.0)
[2017-07-28 11:29] LABS: WBC,Urine > 182.0 /HPF (0.0-6.0)
[2017-07-28] MEDS: ZETIA PO SCH (11:53)
[2017-07-28] MEDS: PROTONIX IV SCH ×2 (11:59→23:04)
[2017-07-28] MEDS ORDERED: GOLYTELY PO ONE (13:00)
[2017-07-28 13:12] LABS: Basophils % (Auto) 0.8 % (0.0-1.8); Eosinophils # (Auto) 0.2 K/mm3 (0.0-0.4); Eosinophils % (Auto) 3.8 % (0.0-4.3); Hematocrit 29.8 % (30.3-42.9); Hemoglobin 9.2 gm/dl (10.1-14.3); Lymphocytes # (Auto) 0.5 K/mm3 (1.2-5.4); Mean Corpuscular HGB Conc 31 % (30-34); Mean Corpuscular Hemoglobin 26 pg (28-32); Mean Corpuscular Volume 85 fl (79-97); Monocytes # (Auto) 0.4 K/mm3 (0.0-0.8); Platelet Count 214 K/mm3 (140-440); Red Cell Distribution Width 17.9 % (13.2-15.2)
[2017-07-28 13:35] LABS: Calcium 8.7 mg/dL (8.4-10.2)
--- NOTE | 2017-07-28 14:50 | Consultation ---
History of Present Illness Consult date: 07/28/17 Requesting physician: GABBY RICHARDSON Reason for consult: pulmonary embolism History of present illness: 67 y/o female admitted with GI bleed and anemia on blood thinners. Pulmonary consulted secondary to PE with anemia? REviewed chart and patient was seen by one of my partners in May. Apparently there was a questionable V/Q scan and pulm was consulted. At the time, we suggested LE Doppler study which was negative. A chest CT was done but had no contrast. My partner recommended if the studies were positive, an IVC filter and no anticoagulation given prior history of recurrent falls. Past History Past Medical History: CAD, COPD, hypertension, hypothyroidism, other (depression , PE) Past Surgical History: hysterectomy, Other (knee replacement, foot surgery) Social history: other (custodial resident) Family history: hypertension Medications and Allergies Allergies Allergy/AdvReac Type Severity Reaction Status Date / Time No Known Allergies Allergy Unverified 06/06/17 13:31 Home Medications Medication Instructions Recorded Confirmed Last Taken Type Apixaban [Eliquis] 5 mg PO Q12HR #60 tablet 06/10/17 07/27/17 07/27/17 Rx Apixaban [Eliquis] 10 mg PO Q12HR #14 tablet 06/10/17 07/27/17 07/27/17 Rx Dicyclomine [Bentyl] 10 mg PO TID #60 tablet 06/10/17 07/27/17 07/27/17 Rx Ezetimibe [Zetia] 10 mg PO QDAY #30 tablet 06/10/17 07/27/17 07/27/17 Rx ISOSORBIDE MONOnitrate [Imdur ER] 30 mg PO DAILY #30 tablet 06/10/17 07/27/17 Rx Ipratropium/Albuterol Sulfate 1 ampul IH Q6HR #30 ampul.neb 06/10/17 07/27/17 Rx [DUONEB *Not for PRN Use*] Levothyroxine [Synthroid] 75 mcg PO QAM #30 tablet 06/10/17 07/27/17 07/27/17 Rx Oxybutynin [Ditropan] 5 mg PO QDAY #30 tablet 06/10/17 07/27/17 07/27/17 Rx Pantoprazole [Protonix TAB] 40 mg PO DAILY #30 tablet 06/10/17 07/27/17 Rx Pravastatin [Pravachol] 40 mg PO QHS #30 tablet 06/10/17 07/27/17 07/27/17 Rx Propranolol LA [Inderal LA] 80 mg PO QDAY #30 capsule 06/10/17 07/27/17 Rx Sertraline [Zoloft] 100 mg PO DAILY #30 tablet 06/10/17 07/27/17 07/27/17 Rx amLODIPine [Norvasc] 5 mg PO DAILY #30 tablet 06/10/17 07/27/17 07/27/17 Rx hydrALAZINE [Apresoline TAB] 50 mg PO TID #90 tablet 06/10/17 07/27/17 07/27/17 Rx Active Meds: Active Medications Acetaminophen (Tylenol) 650 mg PO Q4H PRN PRN Reason: Pain MILD(1-3)/Fever >100.5/REY Albuterol/Ipratropium (Duoneb *Not For Prn Use*) 1 ampul IH Q6HRT [facility] Last Admin: 07/28/17 14:43 Dose: 1 ampul Bisacodyl (Dulcolax) 10 mg VT QDAY PRN PRN Reason: Constipation unrelieved by MOM Ezetimibe (Zetia) 10 mg PO QDAY@1200 [facility] Last Admin: 07/28/17 11:53 Dose: 10 mg Hydralazine HCl (Apresoline) 50 mg PO TID [facility] Last Admin: 07/28/17 13:36 Dose: Not Given Levothyroxine Sodium (Synthroid) 75 mcg PO QAM@0600 [facility] Last Admin: 07/28/17 05:53 Dose: 75 mcg Magnesium Hydroxide (Milk Of Magnesia) 30 ml PO Q4H PRN PRN Reason: Constipation Ondansetron HCl (Zofran) 4 mg IV Q8H PRN PRN Reason: N/V unrelieved by Reglan Oxybutynin Chloride (Ditropan) 5 mg PO QDAY [facility] Last Admin: 07/28/17 09:33 Dose: 5 mg Pantoprazole Sodium (Protonix) 40 mg IV QDAY [facility] Last Admin: 07/28/17 11:59 Dose: 40 mg Sertraline HCl (Zoloft) 100 mg PO DAILY [facility] Last Admin: 07/28/17 09:34 Dose: 100 mg Review of Systems All systems: negative Physical Examination Vital signs: Vital Signs Temp Pulse Resp BP Pulse Ox 99.1 F 103 H 18 86/50 96 07/27/17 17:04 07/27/17 17:04 07/27/17 17:04 07/27/17 17:04 07/27/17 17:04 Results - Laboratory Findings CBC and BMP: 07/28/17 11:11 07/28/17 11:11 PT/INR, D-dimer PT 22.4 Sec. (12.2-14.9) H 07/27/17 17:47 INR 1.85 (0.87-1.13) H 07/27/17 17:47 Abnormal lab findings: Abnormal Labs 07/27/17 07/27/17 07/27/17 17:47 17:47 17:47 RBC 2.64 L Hgb 6.4 L Hct 21.7 L MCH 24 L RDW 19.0 H Lymph % (Auto) 7.7 L [place] % (Auto) 8.5 H Lymph # 0.4 L Seg Neutrophils % 79.2 H PT 22.4 H INR 1.85 H Potassium 5.4 H Chloride Carbon Dioxide BUN 49 H Creatinine 1.8 H Glucose 112 H POC Glucose ALT 5 L NT-Pro-B Natriuret Pep Total Protein 5.4 L Albumin 3.1 L Urine WBC (Auto) Crossmatch 07/27/17 07/27/17 07/27/17 21:19 21:19 21:24 RBC Hgb Hct MCH RDW Lymph % (Auto) [place] % (Auto) Lymph # Seg Neutrophils % PT INR Potassium 5.1 H Chloride Carbon Dioxide BUN 49 H Creatinine 1.6 H Glucose 114 H POC Glucose ALT NT-Pro-B Natriuret Pep 3445 H Total Protein Albumin Urine WBC (Auto) Crossmatch See Detail 07/27/17 07/28/17 07/28/17 23:32 10:27 11:11 RBC 3.50 L Hgb 9.2 L Hct 29.8 L D MCH 26 L RDW 17.9 H Lymph % (Auto) 9.0 L [place] % (Auto) Lymph # 0.5 L Seg Neutrophils % 80.4 H PT INR Potassium Chloride Carbon Dioxide BUN Creatinine Glucose POC Glucose 110 H ALT NT-Pro-B Natriuret Pep Total Protein Albumin Urine WBC (Auto) > 182.0 H Crossmatch 07/28/17 11:11 RBC Hgb Hct MCH RDW Lymph % (Auto) [place] % (Auto) Lymph # Seg Neutrophils % PT INR Potassium Chloride 107.1 H Carbon Dioxide 21 L BUN 47 H Creatinine 1.5 H Glucose 111 H POC Glucose ALT NT-Pro-B Natriuret Pep Total Protein Albumin Urine WBC (Auto) Crossmatch Assessment and Plan 67 y/o female with questionable evidence of acute VTE, on anticoagulation now with GI bleed. 1. Based upon prior review and evaluation of chart. The evidence for acute PE was very thin and the initial recommendation was to not anticoagulate and place an IVC if other supporting studies were positive. At this point, with no true diagnosis of PE, I have no recommendations other than the same ones from before , only now would suggest no anticoagulation given recent GI bleed. Will sign off.
[2017-07-29] MEDS: DUONEB *Not for PRN Use IH SCH ×4 (02:06→19:36)
[2017-07-29] MEDS: SYNTHROID PO SCH (05:11)
[2017-07-29 05:33] LABS: Basophils # (Auto) 0.1 K/mm3 (0.0-0.1); Basophils % (Auto) 1.2 % (0.0-1.8); Eosinophils # (Auto) 0.2 K/mm3 (0.0-0.4); Eosinophils % (Auto) 3.6 % (0.0-4.3); Hematocrit 29.4 % (30.3-42.9); Hemoglobin 9.2 gm/dl (10.1-14.3); Lymphocytes # (Auto) 0.8 K/mm3 (1.2-5.4); Lymphocytes % (Auto) 16.3 % (13.4-35.0); Mean Corpuscular HGB Conc 31 % (30-34); Mean Corpuscular Hemoglobin 27 pg (28-32); Mean Corpuscular Volume 85 fl (79-97); Monocytes # (Auto) 0.3 K/mm3 (0.0-0.8); Platelet Count 223 K/mm3 (140-440); Red Blood Count 3.48 M/mm3 (3.65-5.03); Red Cell Distribution Width 18.4 % (13.2-15.2)
[2017-07-29 05:43] LABS: INR 1.35 (0.87-1.13)
[2017-07-29] MEDS ORDERED: NACL 0.9% 1000 ML 1,000 ML ONE (07:39)
[2017-07-29] MEDS ORDERED: WATER FOR IRRIG STERILE IR ONE ×2 (07:52→08:00)
--- NOTE | 2017-07-29 07:59 | Anesthesia Day of Surgery ---
Anesthesia Day of Surgery - Day of Surgery Patient Examined: Yes Patient H&P Reviewed: Yes Patient is NPO: Yes
--- NOTE | 2017-07-29 08:01 | Anesthesia Consultation ---
Anesthesia Consult and Med Hx Date of service: 07/29/17 - Airway Anesthetic Teeth Evaluation: Edentulous ROM Head & Neck: Adequate Mental/Hyoid Distance: Adequate Mallampati Class: Class III Intubation Access Assessment: Possibly Difficult - Pulmonary Exam CTA: Yes - Cardiac Exam Cardiac Exam: RRR - Pre-Operative Health Status ASA Pre-Surgery Classification: ASA4 Proposed Anesthetic Plan: MAC - Pulmonary Hx Smoking: No COPD: Yes (HX of PE) Hx Pneumonia: Yes - Cardiovascular System Hx Hypertension: Yes Hx Coronary Artery Disease: Yes Hx Heart Attack/AMI: Yes - Central Nervous System Hx Back Pain: Yes - Endocrine Hx Renal Disease: Yes (renal failure) Hx Hypothyroidism: Yes - Hematic Hx Anemia: Yes - Other Systems Hx Cancer: No
[2017-07-29] MEDS ORDERED: AMIDATE IV ONE (08:37)
--- NOTE | 2017-07-29 08:49 | Post Operative Note ---
Pre-op diagnosis: Anemia Post-op diagnosis: other (Hiatal hernia) Findings: 1. 5 cm hiatal hernia 2. Otherwise normal EGD Procedure: EGD Anesthesia: MAC Surgeon: DHAVAL FORDE Estimated blood loss: none Pathology: none Condition: stable Disposition: floor (Colonoscopy not done due to no prep. Can be done on Tuesday , or, if discharged, as outpatient.)
--- NOTE | 2017-07-29 09:23 | Operative Report ---
PROCEDURE: Upper endoscopy. PREOPERATIVE DIAGNOSIS: Profound anemia. POSTOPERATIVE DIAGNOSIS: Hiatal hernia. SEDATION: MAC by Anesthesia. HISTORY: The patient is a 67[facility], who is awake and alert. She presented with a hemoglobin of 6.4 and normal MCV of 82. She has a distant history of peptic ulcer disease. PROCEDURE IN DETAIL: Indications, risks, and benefits were explained and consent was obtained. The patient was placed in left lateral decubitus position and sedated. [employer] video upper endoscope was passed through the mouth and oropharynx into the descending duodenum. Scope was then gradually withdrawn with close inspection of the mucosa. FINDINGS: 1. Normal esophagus with sharp Z-line located at 30 cm from the gums. 2. A 5 cm hiatal hernia, somewhat complex. Mucosa is normal with no Herb erosions noted. 3. Remainder of gastric antrum, fundus, body, and cardia are normal appearing. 4. Normal appearing duodenal bulb and duodenum. The patient tolerated the procedure well without immediate complication. IMPRESSION: 1. A 5 cm hiatal hernia. 2. Otherwise, normal upper endoscopy with no evidence of peptic ulcer disease or bleeding source. PLAN: 1. Colonoscopy either on 08/01/2016 if patient still inpatient, or as outpatient. 2. Check iron studies, etc, as outpatient after blood post-transfusion. JOB# [id number] HRC/NTS
[2017-07-29] MEDS: DITROPAN PO SCH (10:04)
[2017-07-29] MEDS: APRESOLINE PO SCH ×3 (10:05→20:04)
[2017-07-29] MEDS: ZOLOFT PO SCH (10:06)
[2017-07-29] MEDS: PROTONIX IV SCH (12:32)
[2017-07-29] MEDS: ZETIA PO SCH (12:32)
[2017-07-29] MEDS ORDERED: PROTONIX PO SCH (14:45)
--- NOTE | 2017-07-29 15:01 | Progress Note ---
Assessment and Plan Assessment and plan: 67-year-old woman who was sent from a retirement, she was recently diagnosed with pulmonary embolism and is on anticoagulation. She was sent for low blood pressure. Patient denies melena or blood in her stool. But also admits that she does not really look at her stool. Acute blood loss anemia Was transfused and now blood count is improved, -Case discussed with GI, status post EGD which was unremarkable -We will need colonoscopy which can be done early next week while an outpatient , patient thinks she'll would prefer to wait and have it done as an inpatient as an inpatientHistory of Pulmonary embolism Case was discussed with molder pipe covering, apparently the patient had a PE about 4 months ago. The last time the patient was actually seen by pulmonology and he recommended no further anticoagulation. Dopplers of lower x-rays were recommended and is negative for DVT. Therefore no further need for anticoagulation, etc. since the risk does not outweigh the benefits Acute kidney injury/ATN improving, sp transfusion, give IVF Hypothyroidism -Thyroid function tests within normal limits, continue Synthroid at current dose Hyperkalemia -Improving, medically managed History Interval history: Review of systems Constitutional: No fevers, no malaise, no joint pains CVS: No chest pain, no orthopnea, no dyspnea on exertion, no pedal edema GI: No abdominal pain, no diarrhea, no vomiting, no constipation, admits nausea Respiratory: No shortness of breath, no wheezing, no coughingReview of systems Hospitalist Physical - Physical exam Narrative exam: General.: Appears well, no distress, nontoxic HEENT: Moist mucous membranes, extraocular muscles intact, no lymphadenopathy Neck: supple Cardiac: S1-S2 heard Lungs: clear to auscultation bilaterally Abdomen: soft , nontender, nondistended, bowel sounds positive Extremities: no edema clubbing or cyanosis Skin: no rash or lesions Neurologic: no gross focal deficits Psych: appropriate behavior, appropriate mood, corporative, judgment intact - Constitutional Vitals: Temp Pulse Resp BP Pulse Ox 98.4 F 83 20 144/90 95 07/29/17 09:57 07/29/17 10:05 07/29/17 09:57 07/29/17 10:05 07/29/17 09:57 Results - Labs CBC & Chem 7: 07/29/17 04:40 07/28/17 11:11 Labs: Laboratory Last Values WBC 4.9 K/mm3 (4.5-11.0) 07/29/17 04:40 RBC 3.48 M/mm3 (3.65-5.03) L 07/29/17 04:40 Hgb 9.2 gm/dl (10.1-14.3) L 07/29/17 04:40 Hct 29.4 % (30.3-42.9) L 07/29/17 04:40 MCV 85 fl (79-97) 07/29/17 04:40 MCH 27 pg (28-32) L 07/29/17 04:40 MCHC 31 % (30-34) 07/29/17 04:40 RDW 18.4 % (13.2-15.2) H 07/29/17 04:40 Plt Count 223 K/mm3 (140-440) 07/29/17 04:40 Lymph % (Auto) 16.3 % (13.4-35.0) 07/29/17 04:40 [place] % (Auto) 7.0 % (0.0-7.3) 07/29/17 04:40 Eos % (Auto) 3.6 % (0.0-4.3) 07/29/17 04:40 Baso % (Auto) 1.2 % (0.0-1.8) 07/29/17 04:40 Lymph # 0.8 K/mm3 (1.2-5.4) L 07/29/17 04:40 [place] # 0.3 K/mm3 (0.0-0.8) 07/29/17 04:40 Eos # 0.2 K/mm3 (0.0-0.4) 07/29/17 04:40 Baso # 0.1 K/mm3 (0.0-0.1) 07/29/17 04:40 Seg Neutrophils % 71.9 % (40.0-70.0) H 07/29/17 04:40 Seg Neutrophils # 3.5 K/mm3 (1.8-7.7) 07/29/17 04:40 PT 17.4 Sec. (12.2-14.9) H 07/29/17 04:40 INR 1.35 (0.87-1.13) H 07/29/17 04:40 VBG pH 7.351 (7.320-7.420) 07/27/17 17:47 Sodium 144 mmol/L (137-145) 07/28/17 11:11 Potassium 4.9 mmol/L (3.6-5.0) 07/28/17 11:11 Chloride 107.1 mmol/L (98-107) H 07/28/17 11:11 Carbon Dioxide 21 mmol/L (22-30) L 07/28/17 11:11 Anion Gap 21 mmol/L 07/28/17 11:11 BUN 47 mg/dL (7-17) H 07/28/17 11:11 Creatinine 1.5 mg/dL (0.7-1.2) H 07/28/17 11:11 Estimated GFR 34 ml/min 07/28/17 11:11 BUN/Creatinine Ratio 31 % 07/28/17 11:11 Glucose 111 mg/dL (65-100) H 07/28/17 11:11 POC Glucose 110 (70-105) H 07/27/17 23:32 Lactic Acid 1.40 mmol/L (0.7-2.0) 07/27/17 17:47 Calcium 8.7 mg/dL (8.4-10.2) 07/28/17 11:11 Total Bilirubin 0.20 mg/dL (0.1-1.2) 07/27/17 17:47 AST 18 units/L (5-40) 07/27/17 17:47 ALT 5 units/L (7-56) L 07/27/17 17:47 Alkaline Phosphatase 96 units/L (35-129) 07/27/17 17:47 NT-Pro-B Natriuret Pep 3445 pg/mL (0-900) H 07/27/17 21:19 Total Protein 5.4 g/dL (6.3-8.2) L 07/27/17 17:47 Albumin 3.1 g/dL (3.9-5) L 07/27/17 17:47 Albumin/Globulin Ratio 1.3 % 07/27/17 17:47 TSH 1.290 mlU/mL (0.270-4.200) 07/27/17 17:47 Free T4 1.41 ng/dL (0.76-1.46) 07/27/17 17:47 Urine Color Hayley (Yellow) 07/28/17 10:27 Urine Turbidity Turbid (Clear) 07/28/17 10:27 Urine pH 6.0 (5.0-7.0) 07/28/17 10:27 Ur Specific [place] 1.016 (1.003-1.030) 07/28/17 10:27 Urine Protein 30 mg/dl mg/dL (Negative) 07/28/17 10:27 Urine Glucose (UA) Neg mg/dL (Negative) 07/28/17 10:27 Urine Ketones Neg mg/dL (Negative) 07/28/17 10:27 Urine Blood Mod (Negative) 07/28/17 10:27 Urine Nitrite Neg (Negative) 07/28/17 10:27 Urine Bilirubin Neg (Negative) 07/28/17 10:27 Urine Urobilinogen < 2.0 mg/dL (<2.0) 07/28/17 10:27 Ur Leukocyte Esterase Lg (Negative) 07/28/17 10:27 Urine WBC (Auto) > 182.0 /HPF (0.0-6.0) H 07/28/17 10:27 Urine RBC (Auto) 39.0 /HPF (0.0-6.0) 07/28/17 10:27 U Epithel Cells (Auto) 5.0 /HPF (0-13.0) 07/28/17 10:27 Urine Bacteria (Auto) 4+ /HPF (Negative) 07/28/17 10:27 Ur Transition Epith Cell 4 /HPF 07/28/17 10:27 Urine Mucus Few /HPF 07/28/17 10:27 Blood Type O POSITIVE 07/27/17 21:24 Antibody Screen Negative 07/27/17 21:24 Crossmatch See Detail 07/27/17 21:24
[2017-07-29] MEDS: ZOFRAN IV SCH ×2 (15:24→22:06)
[2017-07-30] MEDS: DUONEB *Not for PRN Use IH SCH ×4 (01:57→20:45)
[2017-07-30] MEDS: SYNTHROID PO SCH (05:28)
[2017-07-30] MEDS: ZOFRAN IV SCH ×2 (06:10→15:17)
--- NOTE | 2017-07-30 08:44 | Gastroenterology Progress Note ---
Assessment and Plan - Patient Problems (1) COPD (chronic obstructive pulmonary disease) Current Visit: No Status: Acute (2) Renal insufficiency Current Visit: No Status: Acute (3) Anemia Current Visit: No Status: Chronic Plan to address problem: Stable anemia, possible occult GI bleeding source. Patient and attending desire inpatient study. Will aim for colonoscopy on Tuesday. Subjective Date of service: 07/30/17 Principal diagnosis: Severe anemia, possibley occult GI blood loss Interval history: The patient denies any discomfort. Objective - Constitutional Vitals: Temp Pulse Resp BP Pulse Ox 98.2 F 88 106 H 115/78 96 07/30/17 04:31 07/30/17 08:10 07/30/17 08:10 07/30/17 04:31 07/30/17 04:31 General appearance: no acute distress - EENT ENT: hearing intact - Neck Neck: supple, normal ROM - Respiratory Respiratory effort: normal Respiratory: bilateral: CTA - Cardiovascular Rhythm: regular - Gastrointestinal General gastrointestinal: Present: soft, non-tender, non-distended, normal bowel sounds - Neurologic Neurological: alert and oriented x3 - Labs CBC & Chem 7: 07/29/17 04:40 07/28/17 11:11
[2017-07-30] MEDS: ZOLOFT PO SCH (10:25)
[2017-07-30] MEDS: DITROPAN PO SCH (10:26)
[2017-07-30] MEDS: APRESOLINE PO SCH ×3 (10:26→23:47)
[2017-07-30] MEDS: PROTONIX PO SCH (10:26)
--- NOTE | 2017-07-30 10:55 | Progress Note ---
Assessment and Plan Assessment and plan: 67-year-old woman who was sent from a residential, she was recently diagnosed with pulmonary embolism and is on anticoagulation. She was sent for low blood pressure. Patient denies melena or blood in her stool. But also admits that she does not really look at her stool. Acute blood loss anemia Was transfused and now blood count is improved, -Case discussed with GI, status post EGD which was unremarkable -We will need colonoscopy which can be done early next week while an intpatient , patient thinks she'll would prefer to wait and have it done as an inpatient History of Pulmonary embolism Case was discussed with industrial gas servicer, apparently the patient had a PE about 4 months ago. The last time the patient was actually seen by pulmonology and he recommended no further anticoagulation. Dopplers of lower x-rays were recommended and is negative for DVT. Therefore no further need for anticoagulation, etc. since the risk does not outweigh the benefits Acute kidney injury/ATN improving, sp transfusion, give IVF Hypothyroidism -Thyroid function tests within normal limits, continue Synthroid at current dose Hyperkalemia -Improving, medically managed History Interval history: Review of systems Constitutional: No fevers, no malaise, no joint pains CVS: No chest pain, no orthopnea, no dyspnea on exertion, no pedal edema GI: No abdominal pain, no diarrhea, no vomiting, no constipation, admits nausea Respiratory: No shortness of breath, no wheezing, no coughingReview of systems Hospitalist Physical - Physical exam Narrative exam: General.: Appears well, no distress, nontoxic HEENT: Moist mucous membranes, extraocular muscles intact, no lymphadenopathy Neck: supple Cardiac: S1-S2 heard Lungs: clear to auscultation bilaterally Abdomen: soft , nontender, nondistended, bowel sounds positive Extremities: no edema clubbing or cyanosis Skin: no rash or lesions Neurologic: no gross focal deficits Psych: appropriate behavior, appropriate mood, corporative, judgment intact - Constitutional Vitals: Temp Pulse Resp BP Pulse Ox 99.5 F 95 H 20 113/73 95 07/30/17 10:20 07/30/17 10:26 07/30/17 10:20 07/30/17 10:26 07/30/17 10:20 Results - Labs CBC & Chem 7: 07/29/17 04:40 07/28/17 11:11 Labs: Laboratory Last Values WBC 4.9 K/mm3 (4.5-11.0) 07/29/17 04:40 RBC 3.48 M/mm3 (3.65-5.03) L 07/29/17 04:40 Hgb 9.2 gm/dl (10.1-14.3) L 07/29/17 04:40 Hct 29.4 % (30.3-42.9) L 07/29/17 04:40 MCV 85 fl (79-97) 07/29/17 04:40 MCH 27 pg (28-32) L 07/29/17 04:40 MCHC 31 % (30-34) 07/29/17 04:40 RDW 18.4 % (13.2-15.2) H 07/29/17 04:40 Plt Count 223 K/mm3 (140-440) 07/29/17 04:40 Lymph % (Auto) 16.3 % (13.4-35.0) 07/29/17 04:40 [place] % (Auto) 7.0 % (0.0-7.3) 07/29/17 04:40 Eos % (Auto) 3.6 % (0.0-4.3) 07/29/17 04:40 Baso % (Auto) 1.2 % (0.0-1.8) 07/29/17 04:40 Lymph # 0.8 K/mm3 (1.2-5.4) L 07/29/17 04:40 [place] # 0.3 K/mm3 (0.0-0.8) 07/29/17 04:40 Eos # 0.2 K/mm3 (0.0-0.4) 07/29/17 04:40 Baso # 0.1 K/mm3 (0.0-0.1) 07/29/17 04:40 Seg Neutrophils % 71.9 % (40.0-70.0) H 07/29/17 04:40 Seg Neutrophils # 3.5 K/mm3 (1.8-7.7) 07/29/17 04:40 PT 17.4 Sec. (12.2-14.9) H 07/29/17 04:40 INR 1.35 (0.87-1.13) H 07/29/17 04:40 VBG pH 7.351 (7.320-7.420) 07/27/17 17:47 Sodium 144 mmol/L (137-145) 07/28/17 11:11 Potassium 4.9 mmol/L (3.6-5.0) 07/28/17 11:11 Chloride 107.1 mmol/L (98-107) H 07/28/17 11:11 Carbon Dioxide 21 mmol/L (22-30) L 07/28/17 11:11 Anion Gap 21 mmol/L 07/28/17 11:11 BUN 47 mg/dL (7-17) H 07/28/17 11:11 Creatinine 1.5 mg/dL (0.7-1.2) H 07/28/17 11:11 Estimated GFR 34 ml/min 07/28/17 11:11 BUN/Creatinine Ratio 31 % 07/28/17 11:11 Glucose 111 mg/dL (65-100) H 07/28/17 11:11 POC Glucose 110 (70-105) H 07/27/17 23:32 Lactic Acid 1.40 mmol/L (0.7-2.0) 07/27/17 17:47 Calcium 8.7 mg/dL (8.4-10.2) 07/28/17 11:11 Total Bilirubin 0.20 mg/dL (0.1-1.2) 07/27/17 17:47 AST 18 units/L (5-40) 07/27/17 17:47 ALT 5 units/L (7-56) L 07/27/17 17:47 Alkaline Phosphatase 96 units/L (35-129) 07/27/17 17:47 NT-Pro-B Natriuret Pep 3445 pg/mL (0-900) H 07/27/17 21:19 Total Protein 5.4 g/dL (6.3-8.2) L 07/27/17 17:47 Albumin 3.1 g/dL (3.9-5) L 07/27/17 17:47 Albumin/Globulin Ratio 1.3 % 07/27/17 17:47 TSH 1.290 mlU/mL (0.270-4.200) 07/27/17 17:47 Free T4 1.41 ng/dL (0.76-1.46) 07/27/17 17:47 Urine Color Hayley (Yellow) 07/28/17 10:27 Urine Turbidity Turbid (Clear) 07/28/17 10:27 Urine pH 6.0 (5.0-7.0) 07/28/17 10:27 Ur Specific [place] 1.016 (1.003-1.030) 07/28/17 10:27 Urine Protein 30 mg/dl mg/dL (Negative) 07/28/17 10:27 Urine Glucose (UA) Neg mg/dL (Negative) 07/28/17 10:27 Urine Ketones Neg mg/dL (Negative) 07/28/17 10:27 Urine Blood Mod (Negative) 07/28/17 10:27 Urine Nitrite Neg (Negative) 07/28/17 10:27 Urine Bilirubin Neg (Negative) 07/28/17 10:27 Urine Urobilinogen < 2.0 mg/dL (<2.0) 07/28/17 10:27 Ur Leukocyte Esterase Lg (Negative) 07/28/17 10:27 Urine WBC (Auto) > 182.0 /HPF (0.0-6.0) H 07/28/17 10:27 Urine RBC (Auto) 39.0 /HPF (0.0-6.0) 07/28/17 10:27 U Epithel Cells (Auto) 5.0 /HPF (0-13.0) 07/28/17 10:27 Urine Bacteria (Auto) 4+ /HPF (Negative) 07/28/17 10:27 Ur Transition Epith Cell 4 /HPF 07/28/17 10:27 Urine Mucus Few /HPF 07/28/17 10:27 Blood Type O POSITIVE 07/27/17 21:24 Antibody Screen Negative 07/27/17 21:24 Crossmatch See Detail 07/27/17 21:24
[2017-07-30] MEDS: ZETIA PO SCH (13:54)
[2017-07-30] MEDS: NACL 0.45% 1000 ML 1,000 ML IV SCH (23:54)
[2017-07-31] MEDS: SYNTHROID PO SCH (06:04)
--- NOTE | 2017-07-31 10:10 | Progress Note ---
Assessment and Plan Assessment and plan: 67-year-old woman who was sent from a [place] [facility], she was recently diagnosed with pulmonary embolism and is on anticoagulation. She was sent for low blood pressure. Patient denies melena or blood in her stool. But also admits that she does not really look at her stool. Acute blood loss anemia Was transfused and now blood count is improved, -Case discussed with GI, status post EGD which was unremarkable -We will need colonoscopy which can be done early next week while an inpatient, patient thinks she'll would prefer to wait and have it done as an inpatient, planned for tomorrow History of Pulmonary embolism Case was discussed with hand profiler, apparently the patient had a PE about 4 months ago. The last time the patient was actually seen by pulmonology and he recommended no further anticoagulation. Dopplers of lower x-rays were recommended and is negative for DVT. Therefore no further need for anticoagulation, etc. since the risk does not outweigh the benefits Acute kidney injury/ATN improving, sp transfusion, give IVF Hypothyroidism -Thyroid function tests within normal limits, continue Synthroid at current dose Hyperkalemia -Improving, medically managed History Interval history: Review of systems Constitutional: No fevers, no malaise, no joint pains CVS: No chest pain, no orthopnea, no dyspnea on exertion, no pedal edema GI: No abdominal pain, no diarrhea, no vomiting, no constipation, admits nausea Respiratory: No shortness of breath, no wheezing, she is c/o dry cough today Hospitalist Physical - Physical exam Narrative exam: General.: Appears well, no distress, nontoxic HEENT: Moist mucous membranes, extraocular muscles intact, no lymphadenopathy Neck: supple Cardiac: S1-S2 heard Lungs: clear to auscultation bilaterally Abdomen: soft , nontender, nondistended, bowel sounds positive Extremities: no edema clubbing or cyanosis Skin: no rash or lesions Neurologic: no gross focal deficits Psych: appropriate behavior, appropriate mood, corporative, judgment intact - Constitutional Vitals: Temp Pulse Resp BP Pulse Ox 98.8 F 79 16 120/59 93 07/31/17 07:57 07/31/17 07:57 07/31/17 07:57 07/31/17 07:57 07/31/17 07:57 Results - Labs CBC & Chem 7: 07/29/17 04:40 07/28/17 11:11 Labs: Laboratory Last Values WBC 4.9 K/mm3 (4.5-11.0) 07/29/17 04:40 RBC 3.48 M/mm3 (3.65-5.03) L 07/29/17 04:40 Hgb 9.2 gm/dl (10.1-14.3) L 07/29/17 04:40 Hct 29.4 % (30.3-42.9) L 07/29/17 04:40 MCV 85 fl (79-97) 07/29/17 04:40 MCH 27 pg (28-32) L 07/29/17 04:40 MCHC 31 % (30-34) 07/29/17 04:40 RDW 18.4 % (13.2-15.2) H 07/29/17 04:40 Plt Count 223 K/mm3 (140-440) 07/29/17 04:40 Lymph % (Auto) 16.3 % (13.4-35.0) 07/29/17 04:40 [place] % (Auto) 7.0 % (0.0-7.3) 07/29/17 04:40 Eos % (Auto) 3.6 % (0.0-4.3) 07/29/17 04:40 Baso % (Auto) 1.2 % (0.0-1.8) 07/29/17 04:40 Lymph # 0.8 K/mm3 (1.2-5.4) L 07/29/17 04:40 [place] # 0.3 K/mm3 (0.0-0.8) 07/29/17 04:40 Eos # 0.2 K/mm3 (0.0-0.4) 07/29/17 04:40 Baso # 0.1 K/mm3 (0.0-0.1) 07/29/17 04:40 Seg Neutrophils % 71.9 % (40.0-70.0) H 07/29/17 04:40 Seg Neutrophils # 3.5 K/mm3 (1.8-7.7) 07/29/17 04:40 PT 17.4 Sec. (12.2-14.9) H 07/29/17 04:40 INR 1.35 (0.87-1.13) H 07/29/17 04:40 VBG pH 7.351 (7.320-7.420) 07/27/17 17:47 Sodium 144 mmol/L (137-145) 07/28/17 11:11 Potassium 4.9 mmol/L (3.6-5.0) 07/28/17 11:11 Chloride 107.1 mmol/L (98-107) H 07/28/17 11:11 Carbon Dioxide 21 mmol/L (22-30) L 07/28/17 11:11 Anion Gap 21 mmol/L 07/28/17 11:11 BUN 47 mg/dL (7-17) H 07/28/17 11:11 Creatinine 1.5 mg/dL (0.7-1.2) H 07/28/17 11:11 Estimated GFR 34 ml/min 07/28/17 11:11 BUN/Creatinine Ratio 31 % 07/28/17 11:11 Glucose 111 mg/dL (65-100) H 07/28/17 11:11 POC Glucose 110 (70-105) H 07/27/17 23:32 Lactic Acid 1.40 mmol/L (0.7-2.0) 07/27/17 17:47 Calcium 8.7 mg/dL (8.4-10.2) 07/28/17 11:11 Total Bilirubin 0.20 mg/dL (0.1-1.2) 07/27/17 17:47 AST 18 units/L (5-40) 07/27/17 17:47 ALT 5 units/L (7-56) L 07/27/17 17:47 Alkaline Phosphatase 96 units/L (35-129) 07/27/17 17:47 NT-Pro-B Natriuret Pep 3445 pg/mL (0-900) H 07/27/17 21:19 Total Protein 5.4 g/dL (6.3-8.2) L 07/27/17 17:47 Albumin 3.1 g/dL (3.9-5) L 07/27/17 17:47 Albumin/Globulin Ratio 1.3 % 07/27/17 17:47 TSH 1.290 mlU/mL (0.270-4.200) 07/27/17 17:47 Free T4 1.41 ng/dL (0.76-1.46) 07/27/17 17:47 Urine Color [place] (Yellow) 07/28/17 10:27 Urine Turbidity Turbid (Clear) 07/28/17 10:27 Urine pH 6.0 (5.0-7.0) 07/28/17 10:27 Ur Specific [place] 1.016 (1.003-1.030) 07/28/17 10:27 Urine Protein 30 mg/dl mg/dL (Negative) 07/28/17 10:27 Urine Glucose (UA) Neg mg/dL (Negative) 07/28/17 10:27 Urine Ketones Neg mg/dL (Negative) 07/28/17 10:27 Urine Blood Mod (Negative) 07/28/17 10:27 Urine Nitrite Neg (Negative) 07/28/17 10:27 Urine Bilirubin Neg (Negative) 07/28/17 10:27 Urine Urobilinogen < 2.0 mg/dL (<2.0) 07/28/17 10:27 Ur Leukocyte Esterase Lg (Negative) 07/28/17 10:27 Urine WBC (Auto) > 182.0 /HPF (0.0-6.0) H 07/28/17 10:27 Urine RBC (Auto) 39.0 /HPF (0.0-6.0) 07/28/17 10:27 U Epithel Cells (Auto) 5.0 /HPF (0-13.0) 07/28/17 10:27 Urine Bacteria (Auto) 4+ /HPF (Negative) 07/28/17 10:27 Ur Transition Epith Cell 4 /HPF 07/28/17 10:27 Urine Mucus Few /HPF 07/28/17 10:27 Blood Type O POSITIVE 07/27/17 21:24 Antibody Screen Negative 07/27/17 21:24 Crossmatch See Detail 07/27/17 21:24
[2017-07-31] MEDS: DUONEB *Not for PRN Use IH SCH ×4 (10:35→19:23)
--- NOTE | 2017-07-31 10:46 | Gastroenterology Progress Note ---
Assessment and Plan - Patient Problems (1) COPD (chronic obstructive pulmonary disease) Current Visit: No Status: Acute (2) Renal insufficiency Current Visit: No Status: Acute (3) Anemia Current Visit: No Status: Chronic Plan to address problem: Possible occult GI bleeding. Inpatient colonoscopy is requested by patient and hospitalist. Prep ordered today. Colonoscopy tomorrow. Subjective Date of service: 07/31/17 Principal diagnosis: Severe anemia, possibly occult GI blood loss Interval history: Feels OK. Objective - Exam Narrative Exam: Brown stool per nurse report. - Constitutional Vitals: Temp Pulse Resp BP Pulse Ox 98.8 F 79 16 120/59 93 07/31/17 07:57 07/31/17 07:57 07/31/17 07:57 07/31/17 07:57 07/31/17 07:57 General appearance: no acute distress - EENT ENT: hearing intact, clear oral mucosa - Respiratory Respiratory effort: normal Respiratory: bilateral: CTA - Cardiovascular Rhythm: regular - Gastrointestinal General gastrointestinal: Present: soft, non-tender, non-distended, normal bowel sounds - Neurologic Neurological: alert and oriented x3 - Labs CBC & Chem 7: 07/29/17 04:40 07/28/17 11:11
[2017-07-31] MEDS: APRESOLINE PO SCH ×3 (10:53→22:04)
[2017-07-31] MEDS: ZOFRAN IV SCH ×4 (10:53→22:14)
[2017-07-31] MEDS: DITROPAN PO SCH (10:53)
[2017-07-31] MEDS: PROTONIX PO SCH (10:54)
[2017-07-31] MEDS: ZOLOFT PO SCH (10:54)
[2017-07-31] MEDS: ZETIA PO SCH (12:46)
[2017-07-31] MEDS: NACL 0.45% 1000 ML 1,000 ML IV SCH (12:46)
[2017-07-31] MEDS ORDERED: GOLYTELY PO SCH (16:00)
--- NOTE | 2017-07-31 16:32 | XRay Report ---
FINAL REPORT PROCEDURE: XR CHEST ROUTINE 2V TECHNIQUE: AP upright and lateral views of the chest are submitted. HISTORY: cough COMPARISON: Chest 07/27/2017 FINDINGS: The trachea is midline. The heart is normal in size. Hiatal hernia is again seen. The lungs are clear. There is no evident pneumothorax or pleural fluid. Degenerative changes of the dorsal spine are present. Calcifications overlie the right more numerous than left shoulder possibly bursitis. IMPRESSION: No radiographically evident acute cardiopulmonary disease. Hiatal hernia. Calcifications overlying the right more numerous than left shoulder possibly reflective of chronic bursitis.
[2017-07-31] MEDS ORDERED: HYDROMET PO PRN (18:58)
[2017-08-01] MEDS: DUONEB *Not for PRN Use IH SCH ×3 (01:32→15:22)
[2017-08-01] MEDS: SYNTHROID PO SCH (05:21)
[2017-08-01] MEDS: ZOFRAN IV SCH ×2 (07:46→17:16)
[2017-08-01] MEDS: APRESOLINE PO SCH ×2 (08:00→17:15)
[2017-08-01] MEDS: PROTONIX PO SCH (09:24)
[2017-08-01] MEDS: DITROPAN PO SCH (09:24)
[2017-08-01] MEDS: ZOLOFT PO SCH (09:25)
[2017-08-01] MEDS ORDERED: XYLOCAINE MPF 2% ONE (11:00)
[2017-08-01] MEDS ORDERED: WATER FOR IRRIG STERILE IR ONE (11:17)
[2017-08-01] MEDS ORDERED: WATER FOR IRRIG STERILE ONE (11:18)
[2017-08-01] MEDS: ZETIA PO SCH (11:43)
[2017-08-01] MEDS: NACL 0.9% 1000 ML 1,000 ML IV SCH ×2 (12:53→13:10)
--- NOTE | 2017-08-01 12:59 | Anesthesia Consultation ---
Anesthesia Consult and Med Hx Date of service: 08/01/17 - Airway Anesthetic Teeth Evaluation: Poor, Edentulous (upper) ROM Head & Neck: Adequate Mental/Hyoid Distance: Adequate Mallampati Class: Class II Intubation Access Assessment: Probably Good - Pulmonary Exam CTA: Yes - Cardiac Exam Cardiac Exam: RRR - Pre-Operative Health Status ASA Pre-Surgery Classification: ASA4 Proposed Anesthetic Plan: MAC - Pulmonary Hx Smoking: No COPD: Yes (HX of PE) Hx Pneumonia: Yes - Cardiovascular System Hx Hypertension: Yes Hx Coronary Artery Disease: Yes (ECHO 06/10 EF 55-60) Hx Heart Attack/AMI: Yes - Central Nervous System Hx Back Pain: Yes - Endocrine Hx Renal Disease: Yes (renal failure) Hx Hypothyroidism: Yes - Hematic Hx Anemia: Yes - Other Systems Hx Cancer: No - Additional Comments Anesthesia Medical History Comments: NAC
--- NOTE | 2017-08-01 13:00 | Anesthesia Day of Surgery ---
Anesthesia Day of Surgery - Day of Surgery Patient Examined: Yes Patient H&P Reviewed: Yes Patient is NPO: Yes
--- NOTE | 2017-08-01 15:12 | Discharge Summary ---
<KADY DANG - Last Filed: 08/01/17 15:43> Providers - Providers Date of Admission: 07/27/17 22:10 Date of discharge: 08/01/17 Attending physician: SIVAKUMAR MARTIN MD 07/27/17 21:44 Consult to Physician [CONS] Stat Consulting Provider: BELLO ROBERSON Reason For Exam: gi bleed Place consult to:: Dr. Radha Roberson Notified:: Answering Service Phone number called:: [phone] Was contact made?: Yes If yes, spoke with:: Dr. Radha Roberson Time called:: 21:53 Comment:: Dr. Collins ( dr) spoke with Dr. Radha Roberson Primary care physician: CHARCOAL UNLOADER Hospitalization Condition: Stable Pertinent studies: Chest x-ray showed no acute cardiopulmonary process EGD showed 5 cm hiatal hernia otherwise normal Endoscopy revealed Grade II Int/External Hemorrhoids Hospital course: 67-year-old woman who was sent from a snf, she was recently diagnosed with pulmonary embolism and is on anticoagulation. She was sent for low blood pressure. Patient denies melena or blood in her stool. But also admits that she does not really look at her stool. At home antihypertensives were held with the exception of hydralazine and pt received IV fluids which was given when necessary. Patient's blood pressure then stabilized. Patient was found to have acute blood loss anemia. She was transfused with unit PRBC and her Eliquis was held after which her H&H improved. Patient underwent an EGD and colonoscopy in efforts to find the underlying cause of her acute blood loss. EGD revealed a 5 cm hiatal hernia colonoscopy results are pending. Upon discharge patient's antihypertensives were held in addition to her Eliquis since of the risks does not outweigh the benefits at this time. Patient was also found to have acute kidney injury which improved after transfusion. Discharge diagnoses Acute blood loss anemia History of pulmonary embolism Acute kidney injury/ATN Hypothyroidism Hyperkalemia Disposition: DC/TX-03 SNF W [facility] CERT Core Measure Documentation - Palliative Care Palliative Care/ Comfort Measures: Not Applicable - Core Measures Any of the following diagnoses?: none Exam - Constitutional Vitals: Temp Pulse Resp BP Pulse Ox 98.8 F 90 19 137/97 92 08/01/17 13:01 08/01/17 13:01 08/01/17 13:01 08/01/17 13:01 08/01/17 13:01 General appearance: Present: no acute distress, well-nourished - EENT Eyes: Present: PERRL ENT: hearing intact, clear oral mucosa - Neck Neck: Present: supple, normal ROM - Respiratory Respiratory effort: normal Respiratory: bilateral: CTA - Cardiovascular Rhythm: regular Heart Sounds: Present: S1 & S2 - Extremities Extremities: no ischemia, No edema Peripheral Pulses: within normal limits - Abdominal General gastrointestinal: Present: soft, non-tender Female genitourinary: Present: deferred - Rectal Rectal Exam: deferred - Integumentary Integumentary: Present: clear, warm, dry - Musculoskeletal Musculoskeletal: gait normal, strength equal bilaterally - Psychiatric Psychiatric: appropriate mood/affect, intact judgment & insight - Neurologic Neurologic: CNII-XII intact, moves all extremities - Allied Health Allied health notes reviewed: nursing Plan Activity: advance as tolerated, fall precautions Diet: low fat, low cholesterol, low salt Follow up with: PRIMARY CAREMD [Primary Care Provider] - 3-5 Days Pending Studies Colonoscopy results <SIVAKUMAR MARTIN - Last Filed: 08/04/17 17:24> Providers - Providers Date of Admission: 07/27/17 22:10 Attending physician: SIVAKUMAR MARTIN MD 07/27/17 21:44 Consult to Physician [CONS] Stat Consulting Provider: BELLO ROBERSON Reason For Exam: gi bleed Place consult to:: Dr. Radha Roberson Notified:: Answering Service Phone number called:: [phone] Was contact made?: Yes If yes, spoke with:: Dr. Radha Roberson Time called:: 21:53 Comment:: Dr. Collins (er dr) spoke with Dr. Radha Roberson Primary care physician: CHARCOAL UNLOADER Hospitalization Hospital course: I saw and evaluated the patient. I reviewed the Mid-level provider's note and agree with the assessment and plan Time spent for discharge: 33 minutes Exam - Constitutional Vitals: Temp Pulse Resp BP Pulse Ox 98.4 F 95 H 18 131/88 99 08/01/17 15:40 08/01/17 15:55 08/01/17 15:55 08/01/17 15:55 08/01/17 15:55
[2017-08-01] MEDS ORDERED: DIPRIVAN 10 MG/ML IV ONE ×2 (15:16)
--- NOTE | 2017-08-01 15:40 | Post Operative Note ---
Pre-op diagnosis: Anemia Post-op diagnosis: other (Hemorrhoids, Fair Prep) Findings: 1. Grade II Int/External Hemorrhoids 2. Fair prep only with liquid brown stool present 3. No other lesions seen, within limits of the prep Procedure: Colonoscopy Anesthesia: MAC Surgeon: RICK JOLLEY Estimated blood loss: none Pathology: none Specimen disposition: other (N/A) Condition: stable Disposition: floor (Recs: 1. OK to d/c home. 2. F/U in clinic in 4-6 weeks to monitor hgb.)
--- NOTE | 2017-08-01 15:56 | Post Anesthesia Evaluation ---
- Post Anesthesia Evaluation Patient Participated: Yes Airway Patent: Yes Stable Respiratory Function: Yes Nausea/Vomiting: No Temp > 96.8F: Yes Pain Manageable: Yes Adequeate Hydration: Yes Anesthesia Complications: No
[2017-08-01 16:03] VITALS: BP 131/88
--- NOTE | 2017-08-01 22:14 | Operative Report ---
PROCEDURE PERFORMED: Colonoscopy. PREOPERATIVE DIAGNOSIS: Cryptogenic anemia. POSTOPERATIVE DIAGNOSIS: Hemorrhoids and only fair preparation. ENDOSCOPIST: Ky Garcia MD INSTRUMENT: [employer] video endoscope. MEDICATIONS: MAC anesthesia by Anesthesia Services. COMPLICATIONS: No apparent complications. ESTIMATED BLOOD LOSS: None. SPECIMENS: None. IMPLANTS: None. ASSISTANTS: None. CONDITION AT COMPLETION: Stable. TECHNIQUE: The patient was informed of the risks and benefits of the procedure. She signed the informed consent to proceed. She was placed in the left lateral decubitus position. The above sedative medications were given. Her vital signs remained stable throughout the procedure. The instrument was advanced from the anus to the cecum under direct visualization. The cecum was identified by the appendiceal orifice and the ileocecal valve. At that point, the bowel was insufflated and the endoscope was slowly withdrawn. The quality of preparation was fair. There was some liquid brown stool present. FINDINGS: 1. Grade 2 internal and external hemorrhoids. 2. Fair preparation of the colon with liquid brown stool, lavaged as possible, but no blood or blood clots seen. 3. No mucosal lesions seen to explain blood loss within the limits of the preparation. RECOMMENDATIONS: 1. Follow up in clinic in 4-6 weeks to repeat blood counts. 2. If significant bleeding or progressive anemia, I would recommend a capsule endoscopy. 3. Multivitamin with iron daily. 4. Since no active bleeding seen on the upper or lower GI tract, okay to use aspirin or other anticoagulation as needed for cardiac purposes. JOB# [id number] SANA/NTS
== END 2017-08-01 19:15 | DRG 377 ==
LOC: ED 16:24 → 2B-ACE 22:10
PROVIDERS: ADMIT Internal Medicine; ATTEND Internal Medicine
PROC: 30233N1 Transfusion of Nonautologous Red Blood Cells into Peripheral Vein, Percutaneous Approach (ICD-10-PCS; principal; 2017-07-27)
PROC: 0DJ08ZZ Inspection of Upper Intestinal Tract, Via Natural or Artificial Opening Endoscopic (ICD-10-PCS; 2017-07-29)
PROC: 0DJD8ZZ Inspection of Lower Intestinal Tract, Via Natural or Artificial Opening Endoscopic (ICD-10-PCS; 2017-08-01)
DX: K92.2 Gastrointestinal hemorrhage, unspecified (principal); N17.0 Acute kidney failure with tubular necrosis; D62 Acute posthemorrhagic anemia; K64.8 Other hemorrhoids; K44.9 Diaphragmatic hernia without obstruction or gangrene; E03.9 Hypothyroidism, unspecified; E87.5 Hyperkalemia; K64.4 Residual hemorrhoidal skin tags; A49.02 Methicillin resistant Staphylococcus aureus infection, unspecified site; I25.10 Atherosclerotic heart disease of native coronary artery without angina pectoris; F32.9 Major depressive disorder, single episode, unspecified; Z96.651 Presence of right artificial knee joint; M54.9 Dorsalgia, unspecified; I10 Essential (primary) hypertension; K21.9 Gastro-esophageal reflux disease without esophagitis; M19.90 Unspecified osteoarthritis, unspecified site; J44.9 Chronic obstructive pulmonary disease, unspecified; M81.0 Age-related osteoporosis without current pathological fracture; Z90.710 Acquired absence of both cervix and uterus; Z87.01 Personal history of pneumonia (recurrent); I25.2 Old myocardial infarction; Z82.49 Family history of ischemic heart disease and other diseases of the circulatory system; Z86.711 Personal history of pulmonary embolism
CPT/HCPCS: 36415; 36430; 71045; 71046; 80048; 80053; 81001; 82140; 82805; 82962; 83880; 84439; 84443; 85025; 85610; 86850; 86900; 86901; 86920; 87040; 87086; 87400; 93005; 93010; 94640; 94760; 96361; 96374; 96375; C9113; J2405; J2704; J7030; J7040; P9016

== ENCOUNTER 2020-05-09 16:40 | Emergency (ER) | payer MEDICARE ==
--- NOTE | 2020-05-09 17:23 | Emergency Department Report ---
HPI - General Chief Complaint: Altered Mental Status Time Seen by Provider: 05/09/20 17:07 - HPI HPI: This is a 69-year-old female who presents to the emergency department via EMS from her [facility] facility in an unresponsive state. The patient is only responsive to painful stimuli. Apparently the initial call was for elevated potassium level but the patient was found to be unresponsive by EMS. She is listed as having a past medical history of congestive heart failure, COPD, coronary artery disease, peripheral vascular disease, hypertension, hyperlipidemia, hypothyroidism, depression, chronic pain syndrome, GERD. The patient does present with some blood work that was drawn today that shows a potassium level of 7.6 and a BUN of 127 with some renal failure. She does appear to have a history of chronic kidney disease as well as her last blood work done here was in 2018 and showed a creatinine of 1.5 and a GFR of 37. Currently she has a creatinine of 2.96 and GFR of 16 on the same blood work sent in. As the patient is only responsive to painful stimuli, she is currently a poor historian, and it is unknown what her physical complaints are or any known aggravating or alleviating factors. ED Past Medical Hx - Past Medical History Previous Medical History?: Yes Hx Hypertension: Yes Hx Heart Attack/AMI: Yes Hx Pulmonary Embolism: Yes Hx GERD: Yes Hx Renal Disease: Yes (renal failure) Hx Arthritis: Yes Hx COPD: Yes (HX of PE) Additional medical history: wound infection,cellulitis,buttocks decubitus,encephalopathy,tachycardia. OSTEOPOROSIS. THYROID-hypothyroidism. ANGINA,generalized weakness, decubitus right lower extremity ulcer staph - Surgical History Past Surgical History?: Yes Additional Surgical History: bilat ankle, right knee surgery, hysterectomy, tonsillectomy - Social History Smoking Status: Unknown if ever smoked - Medications Home Medications: Home Medications Medication Instructions Recorded Confirmed Last Taken Type Dicyclomine [Bentyl] 10 mg PO TID #60 tablet 06/10/17 07/27/17 07/27/17 Rx Ezetimibe [Zetia] 10 mg PO QDAY #30 tablet 06/10/17 07/27/17 07/27/17 Rx ISOSORBIDE MONOnitrate [Imdur ER] 30 mg PO DAILY #30 tablet 06/10/17 07/27/17 07/27/17 Rx Ipratropium/Albuterol Sulfate 1 ampul IH Q6HR #30 ampul.neb 06/10/17 07/27/17 07/27/17 Rx [DUONEB *Not for PRN Use*] Levothyroxine [Synthroid] 75 mcg PO QAM #30 tablet 06/10/17 07/27/17 07/27/17 Rx Oxybutynin [Ditropan] 5 mg PO QDAY #30 tablet 06/10/17 07/27/17 07/27/17 Rx Pantoprazole [Protonix TAB] 40 mg PO DAILY #30 tablet 06/10/17 07/27/17 07/27/17 Rx Pravastatin [Pravachol] 40 mg PO QHS #30 tablet 06/10/17 07/27/17 07/27/17 Rx Sertraline [Zoloft] 100 mg PO DAILY #30 tablet 06/10/17 07/27/17 07/27/17 Rx Ezetimibe [Zetia] 10 mg PO QDAY@1200 tablet 08/01/17 Unknown Rx Polyethylene Glycol/Elect 2,000 ml PO DIRECT bottle 08/01/17 Unknown Rx [Golytely] ED Review of Systems ROS: Stated complaint: NON RESPONSIVE Other details as noted in HPI Comment: Unobtainable due to pts medical conditions Physical Exam - Physical Exam Vital Signs: Vital Signs 05/09/20 17:04 Temperature 99.6 F Pulse Rate 106 H Respiratory 12 Rate Blood Pressure 117/73 O2 Sat by Pulse 100 Oximetry Physical Exam: GENERAL: Patient is ill-appearing and mostly unresponsive. HENT: Normocephalic. Atraumatic. Patient has dry mucous membranes. EYES: Pupils equal reactive to light bilaterally. NECK: Supple. Trachea is midline. CHEST/LUNGS: Clear to auscultation. There is no respiratory distress noted. HEART/CARDIOVASCULAR: Regular. There is no tachycardia. There is no murmur. ABDOMEN: Abdomen is soft, nontender. Patient has normal bowel sounds. SKIN: Skin is warm and dry. NEURO: Patient is arousable only to painful stimuli. Positive gag reflex. She is nonverbal and not following any commands. MUSCULOSKELETAL: There is no obvious deformity. ED Course Vital Signs 05/09/20 17:04 Temperature 99.6 F Pulse Rate 106 H Respiratory 12 Rate Blood Pressure 117/73 O2 Sat by Pulse 100 Oximetry - Consultations Consultation #1: 05/09/20 17:30 I spoke with the microarray specialist on-call, Dr. Parrish, regarding the patient's findings of acute on chronic renal insufficiency, uremia and hyperkalemia. He will see the patient as a consult and has placed orders for IV fluid and sodium bicarb, as well as for further lab and imaging studies. - ABG Interpretation Ph: 7.38 PCO2: 30 PO2: 223 Bicarbonate: 17 Interpretation: respiratory alkalosis, metabolic alkalosis - EJ/Peripheral Line Arm R Time Out Performed: Yes Indications: nurses unable to establis Skin Cleansed in Sterile Fashion: Yes Size: 22 Dressing Placed: Tegaderm, tape Patient Tolerated Procedure: well ED Medical Decision Making - Lab Data Result diagrams: 05/09/20 18:00 05/09/20 18:00 - EKG Data -: EKG Interpreted by Me EKG shows normal: sinus rhythm, axis, intervals, QRS complexes, ST-T waves Rate: normal - EKG Data When compared to previous EKG there are: changes noted (Previous EKG showed accelerated junctional rhythm and prolonged QTC that is not apparent on today's EKG), previous EKG unavailable Interpretation: normal EKG - Radiology Data Radiology results: report reviewed, image reviewed interpreted by me: Chest x-ray does not show any acute process. There are no pleural effusions, obvious pneumonia and there is no pneumothorax. No significant cardiomegaly. CT BRAIN: 05/09/2020 INDICATION / CLINICAL INFORMATION: Altered mental status. COMPARISON: 06/06/2017 FINDINGS: BRAIN/INTRACRANIAL STRUCTURES: Unenhanced CT images of the brain were obtained and compared to the prior exam from 06/06/2017. There is been no significant change. Again seen is prominent ventriculomegaly and cortical atrophy. There is no evidence of acute ischemic injury, hemorrhage, or mass. There are no abnormal extra-axial fluid collections. EXTRACRANIAL STRUCTURES: Unremarkable. IMPRESSION: No acute abnormality. Stable cerebral atrophy and ventriculomegaly. This pattern can be seen as a result of prominent central atrophy or hydrocephalus. It has been stable since the prior exam. - Medical Decision Making This patient was sent in from her skilled nursing facility after she was found to have severe hyperkalemia and then was found to be unresponsive by EMS. The patient is only arousable to painful stimuli and is otherwise not following any commands. She does have a gag reflex. Her oxygen has been maintained at close to 100% without any supplemental oxygen. CT scan of the head without contrast did not show any bleed, shift, mass, ischemia, or any other acute process. Chest x-ray did not show any pneumonia, pleural effusions, pneumothorax, or any other acute process. Patient's labs shows hypokalemia with a potassium of 5.9. Patient has elevated BUN of about 130 and some acute on chronic renal insufficiency. She has a slightly elevated troponin level. Nephrology was contacted and consulted. Patient was presented to the admitting hospitalist, Dr. Thacker. It turns out that this patient is actually Dr. Thacker's patient from the skilled nursing facility. He knows this patient very well and says that she is a DNR on comfort care and should not have been sent to the emergency department for evaluation. He has contacted the facility and it appears that he is discharging her back to the skilled nursing facility for comfort care. Critical Care Time: Yes Critical care time in (mins) excluding proc time.: 35 Critical care attestation.: If time is entered above; I have spent that time in minutes in the direct care of this critically ill patient, excluding procedure time. Critical care time were spent on this patient in doing her initial evaluation and multiple reevaluations, ordering and interpretation of labs and imaging, discussion with the nephrology and hospitalist services, treatment of her hyperkalemia and uremia. Critical Care Time: 35 minutes ED Disposition Clinical Impression: Acute encephalopathy, Uremia, Elevated troponin level Acute on chronic renal failure Qualifiers: Acute renal failure type: unspecified Chronic kidney disease stage: unspecified stage Qualified Code(s): N17.9 - Acute kidney failure, unspecified; N18.9 - Chronic kidney disease, unspecified Disposition: OP ADMIT IP TO THIS HOSP Is pt being admited?: Yes Condition: Serious
[2020-05-09 17:42] VITALS: BP 104/75
--- NOTE | 2020-05-09 17:48 | XRay Report ---
CHEST 1 VIEW 5:18 PM INDICATION / CLINICAL INFORMATION: Altered mental status. COMPARISON: 07/31/17. FINDINGS: SUPPORT DEVICES: None. HEART / MEDIASTINUM: The heart size and pulmonary vasculature are normal. There is a large hiatal her kevin. LUNGS / PLEURA: No significant pulmonary or pleural abnormality. No pneumothorax. ADDITIONAL FINDINGS: There are advanced degenerative changes involving the right shoulder with multip le intra-articular loose bodies and a chronic rotator cuff tear also present. There are moderate dege nerative changes involving the left glenohumeral joint with smaller intra-articular loose bodies and possible chondrocalcinosis. IMPRESSION: No acute abnormality. Signer Name: Guille Hu MD Signed: 05/09/2020 5:44 PM Workstation Name: [id number]
[2020-05-09 18:29] LABS: Basophils # (Auto) 0.1 K/mm3 (0.0-0.1); Basophils % (Auto) 0.5 % (0.0-1.8); Eosinophils % (Auto) 0.3 % (0.0-4.3); Hematocrit 36.2 % (30.3-42.9); Hemoglobin 12.1 gm/dl (10.1-14.3); Lymphocytes # (Auto) 0.8 K/mm3 (1.2-5.4); Lymphocytes % (Auto) 7.3 % (13.4-35.0); Mean Corpuscular HGB Conc 33 % (30-34); Mean Corpuscular Volume 92 fl (79-97); Monocytes # (Auto) 1.4 K/mm3 (0.0-0.8); Monocytes % (Auto) 12.8 % (0.0-7.3); Platelet Count 329 K/mm3 (140-440); Red Blood Count 3.96 M/mm3 (3.65-5.03); Red Cell Distribution Width 16.3 % (13.2-15.2)
[2020-05-09 18:39] LABS: INR 1.42 (0.87-1.13)
[2020-05-09 18:54] LABS: Albumin 2.9 g/dL (3.9-5); Hemolysis Index 9
[2020-05-09 19:04] LABS: Alanine Aminotransferase < 5 units/L (7-56)
[2020-05-09 19:14] LABS: BUN/Creatinine Ratio 46; Blood Urea Nitrogen 134 mg/dL (7-17)
--- NOTE | 2020-05-09 19:24 | Cat Scan Report ---
CT BRAIN: 05/09/2020 INDICATION / CLINICAL INFORMATION: Altered mental status. COMPARISON: 06/06/2017 FINDINGS: BRAIN/INTRACRANIAL STRUCTURES: Unenhanced CT images of the brain were obtained and compared to the pr ior exam from 06/06/2017. There is been no significant change. Again seen is prominent ventriculomegaly and cortical atrophy. There is no evidence of acute ischemic injury, hemorrhage, or mass. There are no abnormal extra-axial fluid collections. EXTRACRANIAL STRUCTURES: Unremarkable. IMPRESSION: No acute abnormality. Stable cerebral atrophy and ventriculomegaly. This pattern can be seen as a re sult of prominent central atrophy or hydrocephalus. It has been stable since the prior exam. All CT scans at this location are performed using dose reduction to ALARA by means of automated expos ure control. Signer Name: Dennis Velasquez MD Signed: 05/09/2020 7:19 PM Workstation Name: [id number]
[2020-05-09 19:35] LABS: Chol/HDL Ratio 4.46 %; HDL Cholesterol 32 mg/dL (40-59); LDL Cholesterol,Direct 68 mg/dL (50-130)
--- NOTE | 2020-05-09 19:39 | Consultation ---
History of Present Illness - Reason for Consult Consult date: 05/09/20 acute renal failure, chronic renal failure Requesting physician: SIENA BROWNING - History of Present Illness This is a 69-year-old female who presents to the emergency department via EMS from her [facility] facility in an unresponsive state. The patient is only responsive to painful stimuli. Apparently the initial call was for elevated potassium level but the patient was found to be unresponsive by EMS. She is listed as having a past medical history of congestive heart failure, COPD, coronary artery disease, peripheral vascular disease, hypertension, hyperlipidemia, hypothyroidism, depression, chronic pain syndrome, GERD. The patient does present with some blood work that was drawn today that shows a potassium level of 7.6 and a BUN of 127 with some renal failure. She does appear to have a history of chronic kidney disease as well as her last blood work done here was in 2018 and showed a creatinine of 1.5 and a GFR of 37. Currently she has a creatinine of 2.96 and GFR of 16 on the same blood work sent in. As the patient is only responsive to painful stimuli, she is currently a poor historian, and it is unknown what her physical complaints are or any kn own aggravating or alleviating factors. - Past Medical History Previous Medical History?: Yes Hx Hypertension: Yes Hx Heart Attack/AMI: Yes Hx Pulmonary Embolism: Yes Hx GERD: Yes Hx Renal Disease: Yes (renal failure) Hx Arthritis: Yes Hx COPD: Yes (HX of PE) Additional medical history: wound infection,cellulitis,buttocks decubitus, encephalopathy,tachycardia. OSTEOPOROSIS. THYROID-hypothyroidism. ANGINA,generalized weakness, decubitus right lower extremity ulcer staph - Surgical History Past Surgical History?: Yes Additional Surgical History: bilat ankle, right knee surgery, hysterectomy, tonsillectomy - Social History Smoking Status: Unknown if ever smoked ROS: Stated complaint: NON RESPONSIVE Other details as noted in HPI Comment: Unobtainable due to pts medical conditions Medications and Allergies Allergies Allergy/AdvReac Type Severity Reaction Status Date / Time codeine Allergy Mild Itching Verified 08/01/17 15:21 Home Medications Medication Instructions Recorded Confirmed Last Taken Type Dicyclomine [Bentyl] 10 mg PO TID #60 tablet 06/10/17 07/27/17 07/27/17 Rx Ezetimibe [Zetia] 10 mg PO QDAY #30 tablet 06/10/17 07/27/17 07/27/17 Rx ISOSORBIDE MONOnitrate [Imdur ER] 30 mg PO DAILY #30 tablet 06/10/17 07/27/17 07/27/17 Rx Ipratropium/Albuterol Sulfate 1 ampul IH Q6HR #30 ampul.neb 06/10/17 07/27/17 07/27/17 Rx [DUONEB *Not for PRN Use*] Levothyroxine [Synthroid] 75 mcg PO QAM #30 tablet 06/10/17 07/27/17 07/27/17 Rx Oxybutynin [Ditropan] 5 mg PO QDAY #30 tablet 06/10/17 07/27/17 07/27/17 Rx Pantoprazole [Protonix TAB] 40 mg PO DAILY #30 tablet 06/10/17 07/27/17 07/27/17 Rx Pravastatin [Pravachol] 40 mg PO QHS #30 tablet 06/10/17 07/27/17 07/27/17 Rx Sertraline [Zoloft] 100 mg PO DAILY #30 tablet 06/10/17 07/27/17 07/27/17 Rx Ezetimibe [Zetia] 10 mg PO QDAY@1200 tablet 08/01/17 Unknown Rx Polyethylene Glycol/Elect 2,000 ml PO DIRECT bottle 08/01/17 Unknown Rx [Golytely] Active Meds: Active Medications Sodium Bicarbonate 75 meq/ (Sodium Chloride) 1,075 mls @ 100 mls/hr IV DIRECT JAM Exam - Vital Signs Vital signs: Vital Signs Pulse 107 H 05/09/20 16:50 - General Appearance General appearance: chronically ill, frail EENT: ATNC, mucous membranes dry Neck: Present: neck supple, trachea midline Respiratory: Decreased Breath Sounds Heart: regular, S1S2 Gastrointestinal: Present: normal. 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
--- NOTE | 2020-05-09 19:48 | History and Physical Report ---
History of Present Illness History of present illness: 69 YO Female with HTN, GERD, LA, PE, CKD, OA, COPD,Osteoperosis, Angina presents to ED for evaluation. Pt unable to provide history. Pt was found down and unresponsive by [employer] personnel. EMS notified. Pt was found, lethargic but able to protect her airway. per EMS, Pt relayed that she was sleeping on the couch when she fell off of it and was then unable to get up and slept on the ground overnight and until she was found this morning. Pt also reported pain in her chest and loss of consciousness. Pt seen and evaluated in ED and found to be confused, and unable to provide detailed history regarding her symptoms. Pt is lethargic on exam but is able to protect her airway. Past History Past Medical History: arthritis, COPD, GERD, hypertension, other (Malnutrition) Past Surgical History: hysterectomy, total knee replacement, tonsillectomy, Other (Ankle Surgery ) Social history: single, Lives alone. denies: smoking, alcohol abuse, prescription drug abuse Family history: no significant family history (reviewed) This is a 69-year-old female who presents to the emergency department via EMS from her [facility] facility in an unresponsive state. The patient is only responsive to painful stimuli. Apparently the initial call was for elevated potassium level but the patient was found to be unresponsive by EMS. She is listed as having a past medical history of congestive heart failure, COPD, coronary artery disease, peripheral vascular disease, hypertension, hyperlipidemia, hypothyroidism, depression, chronic pain syndrome, GERD. The patient does present with some blood work that was drawn today that shows a potassium level of 7.6 and a BUN of 127 with some renal failure. She does appear to have a history of chronic kidney disease as well as her last blood work done here was in 2018 and showed a creatinine of 1.5 and a GFR of 37. Currently she has a creatinine of 2.96 and GFR of 16 on the same blood work sent in. As the patient is only responsive to painful stimuli, she is currently a poor historian, and it is unknown what her physical complaints are or any known aggravating or alleviating factors. ED Past Medical Hx - Past Medical History Previous Medical History?: Yes Hx Hypertension: Yes Hx Heart Attack/AMI: Yes Hx Pulmonary Embolism: Yes Hx GERD: Yes Hx Renal Disease: Yes (renal failure) Hx Arthritis: Yes Hx COPD: Yes (HX of PE) Additional medical history: wound infection,cellulitis,buttocks decubitus,encephalopathy,tachycardia. OSTEOPOROSIS. THYROID-hypothyroidism. ANGINA,generalized weakness, decubitus right lower extremity ulcer staph - Surgical History Past Surgical History?: Yes Additional Surgical History: bilat ankle, right knee surgery, hysterectomy, tonsillectomy - Social History Smoking Status: Unknown if ever smoked Medications and Allergies Allergies Allergy/AdvReac Type Severity Reaction Status Date / Time codeine Allergy Mild Itching Verified 08/01/17 15:21 Home Medications Medication Instructions Recorded Confirmed Last Taken Type Dicyclomine [Bentyl] 10 mg PO TID #60 tablet 06/10/17 07/27/17 07/27/17 Rx Ezetimibe [Zetia] 10 mg PO QDAY #30 tablet 06/10/17 07/27/17 07/27/17 Rx ISOSORBIDE MONOnitrate [Imdur ER] 30 mg PO DAILY #30 tablet 06/10/17 07/27/17 07/27/17 Rx Ipratropium/Albuterol Sulfate 1 ampul IH Q6HR #30 ampul.neb 06/10/17 07/27/17 07/27/17 Rx [DUONEB *Not for PRN Use*] Levothyroxine [Synthroid] 75 mcg PO QAM #30 tablet 06/10/17 07/27/17 07/27/17 Rx Oxybutynin [Ditropan] 5 mg PO QDAY #30 tablet 06/10/17 07/27/17 07/27/17 Rx Pantoprazole [Protonix TAB] 40 mg PO DAILY #30 tablet 06/10/17 07/27/17 07/27/17 Rx Pravastatin [Pravachol] 40 mg PO QHS #30 tablet 06/10/17 07/27/17 07/27/17 Rx Sertraline [Zoloft] 100 mg PO DAILY #30 tablet 06/10/17 07/27/17 07/27/17 Rx Ezetimibe [Zetia] 10 mg PO QDAY@1200 tablet 08/01/17 Unknown Rx Polyethylene Glycol/Elect 2,000 ml PO DIRECT bottle 08/01/17 Unknown Rx [Golytely] Active Meds: Active Medications Sodium Bicarbonate 75 meq/ (Sodium Chloride) 1,075 mls @ 100 mls/hr IV DIRE CT JAM Exam - Constitutional Vitals: Temp Pulse Resp BP Pulse Ox 99.6 F 100 H 18 104/75 100 05/09/20 17:04 05/09/20 17:30 05/09/20 17:41 05/09/20 17:30 05/09/20 17:41 HEART Score - HEART Score Troponin: Troponin T 0.044 ng/mL (0.00-0.029) H 05/09/20 18:00 Results - Labs CBC & Chem 7: 05/09/20 18:00 05/09/20 18:00 Labs: Abnormal lab results 05/09/20 05/09/20 05/09/20 Range/Units 18:00 18:00 18:00 RDW 16.3 H (13.2-15.2) % Lymph % (Auto) 7.3 L (13.4-35.0) % [place] % (Auto) 12.8 H (0.0-7.3) % Lymph # (Auto) 0.8 L (1.2-5.4) K/mm3 [place] # (Auto) 1.4 H (0.0-0.8) K/mm3 Seg Neutrophils % 79.1 H (40.0-70.0) % Seg Neutrophils # 8.7 H (1.8-7.7) K/mm3 PT 17.6 H (12.2-14.9) Sec. INR 1.42 H (0.87-1.13) Potassium 5.9 H (3.6-5.0) mmol/L Carbon Dioxide 19 L (22-30) mmol/L BUN 134 H (7-17) mg/dL Creatinine 2.9 H (0.6-1.2) mg/dL Glucose 153 H (65-100) mg/dL ALT < 5 L (7-56) units/L Troponin T 0.044 H (0.00-0.029) ng/mL Albumin 2.9 L (3.9-5) g/dL Triglycerides 287 H (2-149) mg/dL HDL Cholesterol 32 L (40-59) mg/dL
[2020-05-09] MEDS ORDERED: SODIUM CHLORIDE 0.45% 1000 ML 1,000 ML with SODIUM BICARBONATE 75 MEQ IV SCH (20:00)
[2020-05-09] MEDS ORDERED: SODIUM POLYSTYRENE 15 GM/60 ML ORAL LIQD PO NR (20:07)
[2020-05-09 20:10] LABS: ABG Base Excess -6.2 mmol/L (-2.0-3.0); ABG HCO3 17.8 mmol/L (20.0-26.0); ABG Methemoglobin 0.5 % (0.0-1.5); ABG Oxygen Saturation 99.3 % (95.0-99.0); ABG PCO2 30.8 mm Hg; ABG PH 7.38 pH Units (7.350-7.450); ABG PO2 223.7 mm Hg (80.0-90.0)
[2020-05-09 20:37] LABS: Bacteria,Urine 1+ /HPF (Negative); Bilirubin,Urine NEG (Negative); Blood,Urine LG (Negative); Color,Urine Yellow (Yellow); Hyaline Casts,Urine 21 /LPF; Mucus,Urine FEW /HPF; Protein,Urine <15 mg/dL mg/dL (Negative); Urobilinogen,Urine < 2.0 mg/dL (<2.0)
--- NOTE | 2020-05-09 20:44 | History and Physical Report ---
History of Present Illness Chief complaint: Weakness History of present illness: 69 YO [facility] Resident at [facility] with Vascular Dementia, Cerebral Atherosclerosis, HTN, CKD 3, OA, DVT/PE not currently taking therapeutic anticoagulation, GERD,MD who is currently bedbound, nonambulatory with a palliative performance score of 20% who requires 6/6 assistance with activities of daily living. EMS was notified for increased confusion and an elevated potassium level on routine lab work. EMS was notified and upon arrival the patient was transferred to [facility] for further evaluation and care. Patient seen and evaluated in the emergency department. All lab and imaging studies reviewed. Patient was found to have a slightly elevated potassium of 5.9 without EKG changes. Patient treated with supportive care. CT scan of the brain showed no acute findings. Patient medical decision maker with her brother, Jhoan Licona was notified and informed of patient care t reatment plan and status. Patient brother elects to continue with comfort care measures. Patient is DNR. Patient medically optimized and discharged back to [facility] with comfort care measures in place. Advanced care planning conducted in the emergency department. Patient brother acknowledges understanding and agreement with care plan. Patient brother declines further testing, evaluation and treatment. Past History Past Surgical History: hysterectomy (bilat ankle, right knee surgery,), total knee replacement, tonsillectomy, Other (ankle surgery) Social history: single. denies: smoking, alcohol abuse, prescription drug abuse Family history: hypertension Medications and Allergies Allergies Allergy/AdvReac Type Severity Reaction Status Date / Time codeine Allergy Mild Itching Verified 08/01/17 15:21 Home Medications Medication Instructions Recorded Confirmed Last Taken Type Dicyclomine [Bentyl] 10 mg PO TID #60 tablet 06/10/17 07/27/17 07/27/17 Rx Ezetimibe [Zetia] 10 mg PO QDAY #30 tablet 06/10/17 07/27/17 07/27/17 Rx ISOSORBIDE MONOnitrate [Imdur ER] 30 mg PO DAILY #30 tablet 06/10/17 07/27/17 07/27/17 Rx Ipratropium/Albuterol Sulfate 1 ampul IH Q6HR #30 ampul.neb 06/10/17 07/27/17 07/27/17 Rx [DUONEB *Not for PRN Use*] Levothyroxine [Synthroid] 75 mcg PO QAM #30 tablet 06/10/17 07/27/17 07/27/17 Rx Oxybutynin [Ditropan] 5 mg PO QDAY #30 tablet 06/10/17 07/27/17 07/27/17 Rx Pantoprazole [Protonix TAB] 40 mg PO DAILY #30 tablet 06/10/17 07/27/17 07/27/17 Rx Pravastatin [Pravachol] 40 mg PO QHS #30 tablet 06/10/17 07/27/17 07/27/17 Rx Sertraline [Zoloft] 100 mg PO DAILY #30 tablet 06/10/17 07/27/17 07/27/17 Rx Ezetimibe [Zetia] 10 mg PO QDAY@1200 tablet 08/01/17 Unknown Rx Polyethylene Glycol/Elect 2,000 ml PO DIRECT bottle 08/01/17 Unknown Rx [Golytely] Active Meds: Active Medications Sodium Bicarbonate 75 meq/ (Sodium Chloride) 1,075 mls @ 100 mls/hr IV DIRECT JAM Sodium Polystyrene Sulfonate (Kionex) 30 gm PO ONCE NR Stop: 05/09/20 22:00 Review of Systems ROS unobtainable: due to mental status Exam - Constitutional Vitals: Temp Pulse Resp BP Pulse Ox 99.6 F 100 H 18 104/75 100 05/09/20 17:04 05/09/20 17:30 05/09/20 17:41 05/09/20 17:30 05/09/20 17:41 General appearance: Present: no acute distress, obese - EENT ENT: hearing decreased - Neck Neck: Present: supple - Respiratory Respiratory: bilateral: CTA - Cardiovascular Heart Sounds: Present: S1 & S2. Absent: rub, click - Extremities Extremities: pulses symmetrical, No edema Extremity abnormal: edema Peripheral Pulses: within normal limits - Abdominal General gastrointestinal: Present: soft, non-distended - Integumentary Integumentary: Present: clear, dry - Musculoskeletal Musculoskeletal: generalized weakness - Psychiatric Psychiatric: no appropriate mood/affect, no intact judgment & insight, no memory intact - Neurologic Neurologic: no CNII-XII intact, moves all extremities, no gait normal HEART Score - HEART Score Troponin: Troponin T 0.044 ng/mL (0.00-0.029) H 05/09/20 18:00 Results - Labs CBC & Chem 7: 05/09/20 18:00 05/09/20 18:00 Labs: Abnormal lab results 05/09/20 05/09/20 05/09/20 Range/Units 18:00 18:00 18:00 RDW 16.3 H (13.2-15.2) % Lymph % (Auto) 7.3 L (13.4-35.0) % [place] % (Auto) 12.8 H (0.0-7.3) % Lymph # (Auto) 0.8 L (1.2-5.4) K/mm3 [place] # (Auto) 1.4 H (0.0-0.8) K/mm3 Seg Neutrophils % 79.1 H (40.0-70.0) % Seg Neutrophils # 8.7 H (1.8-7.7) K/mm3 PT 17.6 H (12.2-14.9) Sec. INR 1.42 H (0.87-1.13) ABG pO2 (80.0-90.0) mm Hg ABG HCO3 (20.0-26.0) mmol/L ABG O2 Saturation (95.0-99.0) % ABG Base Excess (-2.0-3.0) mmol/L Potassium 5.9 H (3.6-5.0) mmol/L Carbon Dioxide 19 L (22-30) mmol/L BUN 134 H (7-17) mg/dL Creatinine 2.9 H (0.6-1.2) mg/dL Glucose 153 H (65-100) mg/dL Magnesium (1.7-2.3) mg/dL ALT < 5 L (7-56) units/L Troponin T 0.044 H (0.00-0.029) ng/mL Albumin 2.9 L (3.9-5) g/dL Triglycerides 287 H (2-149) mg/dL HDL Cholesterol 32 L (40-59) mg/dL Urine Creatinine (0.1-20.0) mg/dL 05/09/20 05/09/20 05/09/20 Range/Units 18:00 19:55 20:17 RDW (13.2-15.2) % Lymph % (Auto) (13.4-35.0) % [place] % (Auto) (0.0-7.3) % Lymph # (Auto) (1.2-5.4) K/mm3 [place] # (Auto) (0.0-0.8) K/mm3 Seg Neutrophils % (40.0-70.0) % Seg Neutrophils # (1.8-7.7) K/mm3 PT (12.2-14.9) Sec. INR (0.87-1.13) ABG pO2 223.7 H (80.0-90.0) mm Hg ABG HCO3 17.8 L (20.0-26.0) mmol/L ABG O2 Saturation 99.3 H (95.0-99.0) % ABG Base Excess -6.2 L (-2.0-3.0) mmol/L Potassium (3.6-5.0) mmol/L Carbon Dioxide (22-30) mmol/L BUN (7-17) mg/dL Creatinine (0.6-1.2) mg/dL Glucose (65-100) mg/dL Magnesium 2.40 H (1.7-2.3) mg/dL ALT (7-56) units/L Troponin T (0.00-0.029) ng/mL Albumin (3.9-5) g/dL Triglycerides (2-149) mg/dL HDL Cholesterol (40-59) mg/dL Urine Creatinine 132.0 H (0.1-20.0) mg/dL Assessment and Plan - Patient Problems (1) CKD (chronic kidney disease) stage 4, GFR 15-29 ml/min Current Visit: Yes Status: Acute Plan to address problem: Supportive care. Patient brother declines further evaluation and treatment. Patient has poor prognosis. Patient brother like to have comfort measures enacted. (2) Hyperkalemia Current Visit: Yes Status: Acute (3) Vascular dementia Current Visit: Yes Status: Acute Qualifiers: Dementia behavioral disturbance: without behavioral disturbance Qualified Code(s): F01.50 - Vascular dementia without behavioral disturbance Plan to address problem: supportive care (4) Cerebral atherosclerosis Current Visit: Yes Status: Acute Plan to address problem: Supportive care, verbal prompting, verbal redirection, benzodiazepine therapy as needed. (5) Advance care planning Current Visit: Yes Status: Acute Plan to address problem: Disease education conducted, patient is DNR, patient prognosis explained to the patient's brother who is the medical decision making. Patient brother acknowledges understanding and agreement with care plan and elects to not comfort care and have the patient transferred back to [facility] for comfort care. +30 minutes.
== END 2020-05-10 00:30 | disposition admitted as inpatient to this hospital (09) ==
LOC: ED 16:40
DX: G93.49 Other encephalopathy (principal); I12.9 Hypertensive chronic kidney disease with stage 1 through stage 4 chronic kidney disease, or unspecified chronic kidney disease; N18.9 Chronic kidney disease, unspecified; N17.8 Other acute kidney failure; K21.9 Gastro-esophageal reflux disease without esophagitis; M13.88 Other specified arthritis, other site; I25.2 Old myocardial infarction; Z09 Encounter for follow-up examination after completed treatment for conditions other than malignant neoplasm; Z86.711 Personal history of pulmonary embolism; Z79.01 Long term (current) use of anticoagulants; J44.9 Chronic obstructive pulmonary disease, unspecified; Z90.710 Acquired absence of both cervix and uterus; Z90.89 Acquired absence of other organs; Z98.890 Other specified postprocedural states; Z88.4 Allergy status to anesthetic agent
CPT/HCPCS: 36415; 36569; 70450; 71045; 80053; 80061; 81001; 82140; 82570; 82803; 83735; 84300; 84443; 84484; 85025; 85610; 89050; 93005; 99291; J7030; 80320; G0480